=== PATIENT | female | born 1980 | race Hispanic/Latino ===

== ENCOUNTER 2023-02-04 02:26 | Emergency (ER) | payer BC, OTHER ==
--- OUTSIDE RECORDS SUMMARY | 2023-02-04 02:30 | XMS REPORT | Continuity of Care Document ---
:1980 Author Organization [facility] t Address [address] [place] [address] [address] [place] [address] Care Team Providers Name Role Phone Yanci Huggins Primary Care Physician [phone] L_Ronny Attending Clinician Unavailable ALAYNA_Imani Attending Clinician Unavailable ANURADHA PACE Attending Clinician Unavailable ALEAH CABRALES Attending Clinician Unavailable KEYUR MCBRIDE Attending Clinician Unavailable Doctor Unassigned, [place] Attending Clinician Unavailable Deo Moon MD Attending Clinician Dinh Moody MD Attending Clinician DEO MOON Attending Clinician Unavailable Sana Bush RN Attending Clinician Unavailable Lulu Leon Attending Clinician [phone] Elva Garcia MD Attending Clinician Olga Parker MD Attending Clinician OLGA PARKER Attending Clinician Unavailable Lab, Adc Fam Pob I Attending Clinician Unavailable Trisha Al Attending Clinician TRISHA BHAKTA Attending Clinician Unavailable Magnus Mckeon Attending Clinician Unknown, Attending Attending Clinician Unavailable MAGNUS GRACE Attending Clinician Unavailable FAHAD ASENCIO Attending Clinician Unavailable Fahad Asencio MD Attending Clinician ALANNA CANALES Attending Clinician Unavailable Alanna Canales PA-C Attending Clinician Luis RN, Prasanna Attending Clinician Unavailable 2, Adc Lab Attending Clinician Unavailable Imani_Ronny Admitting Clinician Unavailable OLE Admitting Clinician Unavailable Olga Parker MD Admitting Clinician OLGA PARKER Admitting Clinician Unavailable ALANNA CANALES Admitting Clinician Unavailable Payers Payer Name Policy Type Policy Number Effective Date Expiration Date Juan F slaughter [facility] [id number] 2022 CHOICE (HMO) 00:00:00 [place] [id number] 2016 2020 [place] (PPO) 00:00:00 00:00:00 Problems Condition Condition Condition Status Onset Resolution Last Treating Co mments Source Name Details Category Date Date Treatment Clinician Date PTSD PTSD Disease Active [facility] (post-trau (post-trau 4-03 He alth matic matic 00:00: stress stress 00 disorder) disorder) Essential Essential Problem Active Swe abbie hypertensi Hypertensi 3-03 Co mmuni [facility] Frost[facility] Frostbite Disease Active Uni vers of both of both 2-20 ity of feet, feet, 00:00: [place] initial initial 00 Medical encounter encounter Bran ch Incomplete Incomplete Disease Active 2019- U nivers spontaneou spontaneou 5-14 it [place] of s s [place] 00 [place] Breathing Breathing Disease Active 2019-0 Uni vers problem problem 5-08 ity of 00:00: [place] 00 Medical Branch Hypothyroi Hypothyroi Disease Active 2019-0 U nivers dism, dism, 4-24 ity of unspecifie unspecifie 00:[place] d type d type 00 Medical Branch Medication Medication Disease Active 2020-0 U nivers exposure exposure 4-24 ity of during during 00:00: [place] first first 00 Medical trimester trimester Bran ch of of History of History of Disease Active 2019-0 U nivers anxiety anxiety 4-24 ity of 00:00: [place] 00 Medical Branch History of History of Disease Active U nivers depression depression 4-24 it y of 00:00: [place] 00 Medical [place] Disease Active Uni vers examinatio examinatio 4-24 it y of n or test, n or test, [place]: [place] positive positive 00 Medica l result result Branch Obesity Obesity Disease Active Univers (BMI (BMI 4-23 ity of 30-39.9) 30-39.9) 00:00: [place] 00 Medical Branch Essential Essential Problem Active [facility] abbie tremor Tremor 05-15 [facility] 00:[facility]: [facility] Smoker Smoker Problem Active [place] 3- Communi 00:00: ty [facility] Elevated Elevated Problem Active [place] liver Liver 07-14 Communi enzymes Enzymes 00:00: ty level Level 00 [facility]ospita [facility] Clinics Hypothyroi Hypothyroi Problem Active S weeny dism dism 3 Communi 00:00: [place] 00 [facility] Anxiety Anxiety Problem Active [place] 3-27 Communi 00:00: ty 00 [facility] Encounter Encounter Disease Active 2015-04 Uni vers for for 1-30 ity of initial initial 00:00: [place] prescripti prescripti 00 Me dical on of on of Branch contracept contracept gutierrez pills gutierrez pills Morbid Morbid Disease Active 2015-04 Univers obesity, obesity, 1-30 ity of unspecifie unspecifie 00:00: [place] d obesity d obesity 00 Medi kit type type Branch Depression Depression Disease Active [facility] Allergies, Adverse Reactions, Alerts Allergy Allergy Status Severity Reaction(s) Onset Inactive Treating Comm ents Source Name Type Date Date Clinician NO KNOWN Drug Active Univers ALLERGIE Class ity of S [facility] Social History Social Habit Start Date Stop Date Quantity Comments Source ASSERTION 2019-07-17 University of 00:00:00 [facility] Alcohol Comment occasional Universit y of [facility] History of tobacco Cigarette Smoker University of use [facility] History SDOH University o f Alcohol Binge [facility] Sexual orientation [facility] History of Social 2022-05-14 2022-05-14 [facility] function 00:00:00 00:00:00 Exposure to 2020-06-01 2020-07-01 Not sure [facility] SARS-CoV-2 (event) 00:00:00 12:38:00 [facility] Alcohol intake 2019-09-03 2019-09-03 0 /d University of 00:00:00 00:00:00 [facility] Tobacco use and 2019-08-09 2019-08-09 Smokeless tobacco Un iversity of exposure 00:00:00 00:00:00 non-user [place] [facility] [place] History SDOH 2019-08-09 2019-08-09 4 University o f Alcohol Frequency 00:00:00 00:00:00 [facility] edical Branch History SDOH 2019-08-09 2019-08-09 2 University o f Alcohol Std Drinks 00:00:00 00:00:00 [facility] Tobacco Comment 2019-08-09 2019-08-09 trying to quit [facility] rsity of 00:00:00 00:00:00 [facility] Sex Ass[birth year] At [birth year] Angel Presley alth 00:00:00 00:00:00 Smoking Status Start Date Stop Date Source Occasional tobacco smoker 2019-08-09 00:00:00 Un iversity of [facility] Current every day smoker 2016-03-17 00:00:00 Uni versity [facility] Medications Ordered Filled Start Stop Current Ordering Indication Dosage Frequency Signature Comments Components Source Medication Medication Date Date Medication? Clinician (SIG) Name Name propranolol 2020- No 4222 20mg Take 20 mg Univers 20 mg 12-08 by mouth ity of tablet 19:09: 00:00 daily. [place] 57 :00 Indication Medical s: Branch essential tremor 2020- Take by [facility] rs vit,calc76/ 12-08 mouth. ity o f iron/folic 19:09: 00:00 [place] (PNV 29-1 57 :00 Medical ORAL) Branch sertraline Yes PTSD 25mg QD Take 1 Harri s (ZOLOFT) 25 4-06 (post-traum tablet by Health mg tablet 00:00: atic stress mouth 00 disorder) daily. gabapentin Yes PTSD 300mg Take 1 [place] is (NEURONTIN) 4-05 (post-traum capsule by Health 300 mg 00:00: atic stress mouth 3 capsule 00 disorder) times daily. nicotine Yes PTSD 2mg Place 1 Angel polacrilex 4-05 (post-traum Each He alth (NICORETTE) 00:00: atic stress inside 2 mg Gum 00 disorder) cheek every 2 hours as needed (Nicotine replacemen t). traZODone Yes PTSD 50mg Take 1 [facility] (DESYREL) 4-05 (post-traum tablet by Health 50 mg 00:00: atic stress mouth tablet 00 disorder) nightly at bedtime as needed for Sleep. docusate Yes [id number] 100mg Take 1 Un esteban 100 mg 2-26 capsule by ity of capsule 00:00: mouth [place] 00 daily. Medical Branch NIFEdipine Yes [id number] 60mg Take 1 U nivers ER 60 mg 2-26 tablet by ity of tablet 00:00: mouth [place] 00 daily. Medical Branch Polyethylen Yes [id number] 17g Take 1 Univers e Glycol 2-26 Packet by ity of 3350 17 00:00: mouth [place] gram powder 00 daily. Medica l Branch docusate Yes [id number] 100mg Take 1 Un esteban 100 mg 2-26 capsule by ity of capsule 00:00: mouth [place] 00 daily. Medical Branch NIFEdipine Yes [id number] 60mg Take 1 U nivers ER 60 mg 2-26 tablet by ity of tablet 00:00: mouth [place] 00 daily. Medical Branch Polyethylen Yes [id number] 17g Take 1 Univers e Glycol 2-26 Packet by ity of 3350 17 00:00: mouth [place] gram powder 00 daily. Medica l Branch docusate Yes [id number] 100mg Take 1 Un esteban 100 mg 2-26 capsule by ity of capsule 00:00: mouth [place] 00 daily. Medical Branch NIFEdipine Yes [id number] 60mg Take 1 U nivers ER 60 mg 2-26 tablet by ity of tablet 00:00: mouth [place] 00 daily. Medical Branch Polyethylen Yes [id number] 17g Take 1 Univers e Glycol 2-26 Packet by ity of 3350 17 00:00: mouth [place] gram powder 00 daily. Medica l Branch docusate Yes [id number] 100mg Take 1 Un esteban 100 mg 2-26 capsule by ity of capsule 00:00: mouth [place] 00 daily. Medical Branch NIFEdipine Yes [id number] 60mg Take 1 U nivers ER 60 mg 2-26 tablet by ity of tablet 00:00: mouth [place] 00 daily. Medical Branch Polyethylen Yes [id number] 17g Take 1 Univers e Glycol 2-26 Packet by ity of 3350 17 00:00: mouth [place] gram powder 00 daily. Medica l Branch docusate Yes [id number] 100mg Take 1 Un esteban 100 mg 2-26 capsule by ity of capsule 00:00: mouth [place] 00 daily. Medical Branch NIFEdipine Yes [id number] 60mg Take 1 U nivers ER 60 mg 2-26 tablet by ity of tablet 00:00: mouth [place] 00 daily. Medical Branch Polyethylen Yes [id number] 17g Take 1 Univers e Glycol 2-26 Packet by ity of 3350 17 00:00: mouth [place] gram powder 00 daily. Medica l Branch docusate Yes [id number] 100mg Take 1 Un esteban 100 mg 2-26 capsule by ity of capsule 00:00: mouth [place] 00 daily. Medical Branch NIFEdipine Yes [id number] 60mg Take 1 U nivers ER 60 mg 2-26 tablet by ity of tablet 00:00: mouth [place] 00 daily. Medical Branch Polyethylen Yes [id number] 17g Take 1 Univers e Glycol 2-26 Packet by ity of 3350 17 00:00: mouth [place] gram powder 00 daily. Medica l Branch ciprofloxac 2020- No 500mg 500 mg, U nivers in HCl 2- 03-04 Oral, ity of (CIPRO) 12:45: 11:59 Q12HA2, 14 [place] as tablet 500 00 :00 doses, Medical mg First dose Branch on Beatrice 06/12/20 at 0645, Last dose on Tue06/18/20 at 1800, RHINA
Re ason for Anti-Infec tive: Empiric Therapy for Suspected Infection< br>Empiric Therapy Site: Abdominal< br>Duratio n of therapy: 7 days fluconazole No 400mg 400 mg, U nivers (DIFLUCAN) 2-25 02-25 Oral, ity of tablet 400 00:45: 00:07 ONCE, 1 [place] as mg 00 :00 dose, Wed Medical 06/11/20 at Branch 1845, RHINA
Re ason for Anti-Infec tive: Empiric Non-Surgic al Prophylaxi s
Durat ion of therapy: 72 hours HYDROcodone 2020-0 Yes [id number] 1{tbl} Take 1 Un esteban -acetaminop 2-25 tablet by ity of hen (NORCO) 00:00: mouth [place] 5-325 mg 00 every 6 Medical tablet (six) Branch hours as needed for Pain (scale 4-6). Indication s: acute pain, burn acetaminoph Yes [id number] 500mg Take 1 Univers en 500 mg 2-25 tablet by ity o f tablet 00:00: mouth [place] 00 every 6 Medical (six) Branch hours as needed for Pain. Yes [id number] 1{tbl} Take 1 U nivers [id number]- 2-25 tablet by ity of folic acid 00:00: mouth [place] ( 00 daily. Medical 19) 29 mg Branch iron- 1 mg per tablet nystatin / Yes [id number] Apply to Univers bacitracin- 2-25 affected ity of polymyxin b 00:00: area(s) as [place] oint 1:1 00 needed for Medic al POLY-MYCO Burn Care. Bran ch (COMPOUNDED ) HYDROcodone 0 Yes [id number] 1{tbl} Take 1 Un esteban -acetaminop 2-25 tablet by ity of hen (NORCO) 00:00: mouth [place] 5-325 mg 00 every 6 Medical tablet (six) Branch hours as needed for Pain (scale 4-6). Indication s: acute pain, burn acetaminoph Yes [id number] 500mg Take 1 Univers en 500 mg 2-25 tablet by ity o f tablet 00:00: mouth [place] 00 every 6 Medical (six) Branch hours as needed for Pain. Yes [id number] 1{tbl} Take 1 U nivers [id number]- 2-25 tablet by ity of folic acid 00:00: mouth [place] ( 00 daily. Medical 19) 29 mg Branch iron- 1 mg per tablet nystatin / Yes [id number] Apply to Univers bacitracin- 2-25 affected ity of polymyxin b 00:00: area(s) as [place] oint 1:1 00 needed for Medic al POLY-MYCO Burn Care. Bran ch (COMPOUNDED ) HYDROcodone Yes [id number] 1{tbl} Take 1 Un esteban -acetaminop 2-25 tablet by ity of hen (NORCO) 00:00: mouth [place] 5-325 mg 00 every 6 Medical tablet (six) Branch hours as needed for Pain (scale 4-6). Indication s: acute pain, burn acetaminoph Yes [id number] 500mg Take 1 Univers en 500 mg 2-25 tablet by ity o f tablet 00:00: mouth [place] 00 every 6 Medical (six) Branch hours as needed for Pain. Yes [id number] 1{tbl} Take 1 U nivers [id number]- 2-25 tablet by ity of folic acid 00:00: mouth [place] ( 00 daily. Medical 19) 29 mg Branch iron- 1 mg per tablet nystatin / Yes [id number] Apply to Univers bacitracin- 2-25 affected ity of polymyxin b 00:00: area(s) as [place] oint 1:1 00 needed for Medic al POLY-MYCO Burn Care. Bran ch (COMPOUNDED ) HYDROcodone Yes [id number] 1{tbl} Take 1 Un esteban -acetaminop 2-25 tablet by ity of hen (NORCO) 00:00: mouth [place] 5-325 mg 00 every 6 Medical tablet (six) Branch hours as needed for Pain (scale 4-6). Indication s: acute pain, burn acetaminoph Yes [id number] 500mg Take 1 Univers en 500 mg 2-25 tablet by ity o f tablet 00:00: mouth [place] 00 every 6 Medical (six) Branch hours as needed for Pain. Yes [id number] 1{tbl} Take 1 U nivers [id number]- 2-25 tablet by ity of folic acid 00:00: mouth [place] ( 00 daily. Medical 19) 29 mg Branch iron- 1 mg per tablet nystatin / Yes [id number] Apply to Univers bacitracin- 2-25 affected ity of polymyxin b 00:00: area(s) as [place] oint 1:1 00 needed for Medic al POLY-MYCO Burn Care. Bran ch (COMPOUNDED ) HYDROcodone Yes [id number] 1{tbl} Take 1 Un esteban -acetaminop 2-25 tablet by ity of hen (NORCO) 00:00: mouth [place] 5-325 mg 00 every 6 Medical tablet (six) Branch hours as needed for Pain (scale 4-6). Indication s: acute pain, burn acetaminoph Yes [id number] 500mg Take 1 Univers en 500 mg 2-25 tablet by ity o f tablet 00:00: mouth [place] 00 every 6 Medical (six) Branch hours as needed for Pain. Yes [id number] 1{tbl} Take 1 U nivers [id number]- 2-25 tablet by ity of folic acid 00:00: mouth [place] ( 00 daily. Medical 19) 29 mg Branch iron- 1 mg per tablet nystatin / Yes [id number] Apply to Univers bacitracin- 2-25 affected ity of polymyxin b 00:00: area(s) as [place] oint 1:1 00 needed for Medic al POLY-MYCO Burn Care. Bran ch (COMPOUNDED ) HYDROcodone Yes [id number] 1{tbl} Take 1 Un esteban -acetaminop 2-25 tablet by ity of hen (NORCO) 00:00: mouth [place] 5-325 mg 00 every 6 Medical tablet (six) Branch hours as needed for Pain (scale 4-6). Indication s: acute pain, burn acetaminoph Yes [id number] 500mg Take 1 Univers en 500 mg 2-25 tablet by ity o f tablet 00:00: mouth [place] 00 every 6 Medical (six) Branch hours as needed for Pain. Yes [id number] 1{tbl} Take 1 U nivers [id number]- 2-25 tablet by ity of folic acid 00:00: mouth [place] ( 00 daily. Medical 19) 29 mg Branch iron- 1 mg per tablet nystatin / 0 Yes [id number] Apply to Univers bacitracin- 2-25 affected ity of polymyxin b 00:00: area(s) as [place] oint 1:1 00 needed for Medic al POLY-MYCO Burn Care. Bran ch (COMPOUNDED ) ciprofloxac 2020- No [id number] 500mg Take 1 Univers in HCl 500 25 -05 tablet by ity of mg tablet 00:00: 05:59 mouth [place] 00 :00 every 12 Medical (twelve) Branch hours for 7 days. ciprofloxac 2020- No [id number] 500mg Take 1 Univers in HCl 500 225 -05 tablet by ity of mg tablet 00:00: 05:59 mouth [place] 00 :00 every 12 Medical (twelve) Branch hours for 7 days. ciprofloxac 2020- No [id number] 500mg Take 1 Univers in HCl 500 06-12-05 tablet by ity of mg tablet 00:00: 05:59 mouth [place] 00 :00 every 12 Medical (twelve) Branch hours for 7 days. doxycycline 2020- No 100mg 100 mg, IV Univers (VIBRAMYCIN 06-11 Piggyback, i ty of ) 100 mg in 20:00: 12:37 Q12H ABX, [place] NaCl 0.9% 00 :42 First dose Medi kit (NS) 100 mL on Tue Branch MINI-BAG 06/11/20 at 1400, Until Discontinu ed, 100 mL
R shannon for Anti-Infec tive: Empiric Therapy for Suspected Infection< br>Empiric Therapy Site: Skin / Soft tissue
Duration of therapy: 7 days ciprofloxac No 400mg 400 mg, IV Univers in in 5 % 06-11 Piggyback, ity of dextrose 20:00: 12:37 Administer [place] (CIPRO) 00 :42 over 60 Medical piggyback Minutes, Branch 400 mg Q12H ABX, First dose on Tue06/11/20 at 1400, Until Discontinu ed, RHINA
Re ason for Anti-Infec tive: Empiric Therapy for Suspected Infection< br>Empi evangelist Therapy Site: Skin / Soft tissue
Duration of therapy: 7 days enoxaparin Yes 40mg 40 mg, Unive rs (LOVENOX) 224 Subcutaneo ity of injection 15:00: us, DAILY, [place] 40 mg 00 First dose Medical (after Branch last modificati on) on Tue06/11/20 at 0900, Until Discontinu ed, Routine acetaminoph Yes 500mg 500 mg, Un esteban en 2-24 Oral, Q6H, ity of (TYLENOL) 00:00: First dose [place] tablet 500 00 (after Medical mg last Branch modificati on) on Tue06/10/20 at 1800, Until Discontinu ed, Routine HYDROcodone 0 Yes 1{tbl} 1 tablet, Univers -acetaminop 06-10 Oral, ity of hen (NORCO 18:30: Q4HPRN, [place] 5) 5-325 mg 00 Starting Medi kit tablet 1 Tue [place] tablet 06/10/20 at 1230, Until Discontinu ed, Routine, Pain (scale 7-10) ibuprofen Yes 800mg 800 mg, Univ ers (IBU) 2 Oral, ity of tablet 800 18:18: Q6HPRN, [place] mg 56 Starting Medical [facility] 06/10/20 at 1218, Until Discontinu ed, Routine, Pain (scale 1-3) NIFEdipine Yes 60mg 60 mg, Unive rs ER tablet 06-10 Oral, ity of 60 mg 15:00: DAILY, [place] 00 First dose Medical (after Branch last modificati on) on Tue06/10/20 at 0900, Until Discontinu ed, Routine nystatin / Yes Topical Univ ers bacitracin- 06-10 (Apply To ity of polymyxin b 13:55: Affected [place] oint 1:1 48 Areas), Medical POLY-MYCO PRN, Branch (COMPOUNDED Starting ) Tue06/10/20 at 0755, Until Discontinu ed, Routine, Burn Care sulfamethox 2020- No 1{tbl} 1 tablet, Univers azole-trime 06-10 Oral, BID, i ty of thoprim 02:00: 12:44 First dose [place] as (BACTRIM 00 :02 on Mon Medical DS) 800-160 06/09/20 at Br anch mg per 1999, tablet 1 Until tablet Discontinu ed, RHINA
Re ason for Anti-Infec tive: Empiric Therapy for Suspected Infection< br>Empiric Therapy Site: Skin / Soft tissue
Duration of therapy: 7 days NIFEdipine No 30mg 30 mg, Univ ers ER tablet 06-09 Oral, ity of 30 mg 19:45: 19:43 ONCE, 1 [place] 00 :00 dose, [facility] 06/09/20 at Branch 1345, Routine diazePAM Yes 5mg 5 mg, Univers (VALIUM) 06-08 Oral, TID, ity o f tablet 5 mg 20:00: First dose [place] 00 on [facility] 06/08/20 at Branch 1400, Until Discontinu ed, Routine KCL No 30meq 30 mEq, Univers (KLOR-CON 06-08 Oral, ity of M10) tablet 19:15: 20:41 ONCE, 1 [place] 30 mEq 00 :00 dose, [facility] 06/08/20 at Branch 1315, Routine Polyethylen Yes 17g 17 g, Unive rs e Glycol 06-08 Oral, ity of 3350 18:30: DAILY, [place] (MIRALAX) 00 First dose Medi kit powder 17 g on [facility] 06/08/20 at 1230, Until Discontinu ed, Routine docusate Yes 100mg 100 mg, Unive rs (COLACE) 06-08 Oral, ity of capsule 100 18:30: DAILY, [place] mg 00 First dose Medical on [facility] 06/08/20 at 1230, Until Discontinu ed, Routine NIFEdipine No 30mg 30 mg, Univ ers ER tablet 06-08 Oral, ity of 30 mg 18:30: 18:36 DAILY, [place] 00 :11 First dose Medical on [facility] 06/08/20 at 1230, Until Discontinu ed, Routine D5W 0.45% 2020- No IV Univers NaCl 06-08 Infusion, ity of (1/2NS) 1 L 18:30: 20:48 at 20 [place] + KCL 20 00 :07 mL/hr, Medical mEq CONTINUOUS Branch , Starting Panacea 06/08/20 at 1230, Until Panacea 06/08/20 at 1448, Routine famotidine Yes 20mg 20 mg, Unive rs (PEPCID AC) 06-08 Oral, ity of tablet 20 15:00: DAILY, [place] mg 00 First dose Medical on [facility] 06/08/20 at 0900, Until Discontinu ed, Routine
Indicatio n for use: None of the above multivitami Yes 1{tbl} 1 tablet, Univers n tablet 1 06-08 Oral, ity of tablet 15:00: DAILY, [place] 00 First dose Medical on [facility] 06/08/20 at 0900, Until Discontinu ed, Routine KCL 2020- No 20meq 20 mEq, Univers (KLOR-CON 06-08 Oral, ity of M20) tablet 14:00: 14:25 ONCE, 1 [place] 20 mEq 00 :00 dose, [facility] 06/08/20 at Branch 0800, Routine vancomycin No 1000mg 1,000 mg, Univers (VANCOCIN) 06-08 IV ity of 1,000 mg in 09:00: 18:36 Piggyback, [place] NaCl 0.9% 00 :10 Q12H ABX, Medic al (NS) 250 mL First dose Br anch VIAL-MATE (after IV last piggyback modificati on) on Panacea 06/08/20 at 0300, Until Discontinu ed, 250 mL
Reas on for Anti-Infec tive: Empiric Therapy for Suspected Infection< br>Empiric Therapy Site: Skin / Soft tissue
Duration of therapy: 7 days meropenem 2020- No 500mg 500 mg, IV Univers (MERREM) 06-08 Piggyback, ity of 500 mg in 03:30: 18:36 Administer [place] NaCl 0.9% 00 :10 over 60 Medical (NS) 100 mL Minutes, Bran ch MINI-BAG Q6H ABX, First dose (after last modificati on) on [facility] 06/07/20 at 2130, Until Discontinu ed, RHINA
Re stricted use approved by: [facility] ICU
[place] son for Anti-Infec tive: Empiric Therapy for Suspected Infection< br>Empiric Therapy Site: Skin / Soft tissue
Duration of therapy: 7 days ascorbic Yes 500mg 500 mg, Unive rs acid 06-08 Oral, BID, ity of (vitamin C) 02:00: First dose [place] (VITAMIN C) 00 on [facility] Medica l tablet 500 06/07/20 at [facility] mg 1999, Until Discontinu ed, Routine chlorhexidi Yes 15mL 15 mL, Univ ers ne 06-08 Oral ity of (PERIDEX) 02:00: ([place] 0.12 % 00 Spit Out), Medical mouthwash BID, First Bran ch 15 mL dose on [facility] 06/07/20 at 2000, Until Discontinu ed, Routine silver 2020- No Topical, Univer s nitrate 0.5 06-08 BID, First i ty of % soak 02:00: 13:44 dose on [place] topical 00 :00 [facility] Medical 1000 mL 06/07/20 at [place] (COMPOUNDED 1999, ) solution Until Discontinu ed, Routine enoxaparin 2020- No 40mg 40 mg, Univ ers (LOVENOX) 06-07 Subcutaneo ity of injection 23:00: 13:44 us, DAILY, [place] 40 mg 00 :01 First dose Medical on [facility] Branch 06/07/20 at 1700, Until Discontinu ed, Routine meropenem No 500mg 500 mg, IV Univers (MERREM) 06-07 Piggyback, ity of 500 mg in 21:30: 22:20 Administer [place] NaCl 0.9% 00 :00 over 60 Medical (NS) 100 mL Minutes, Bran ch MINI-BAG ONCE, 1 dose, [facility] 06/07/20 at 1530, RHINA
Re stricted use approved by: [facility] ICU
[place] son for Anti-Infec tive: Empiric Therapy for Suspected Infection< br>Empiric Therapy Site: Skin / Soft tissue
Duration of therapy: 7 days vancomycin No 1000mg 1,000 mg, Univers (VANCOCIN) 06-07 IV ity of 1,000 mg in 21:30: 23:19 Piggyback, [place] NaCl 0.9% 00 :00 ONCE, 1 Medical (NS) 250 mL dose, Sat Bra [facility] VIAL-MATE 06/07/20 at IV 1530, 250 piggyback mL
Reas on for Anti-Infec tive: Empiric Therapy for Suspected Infection< br>Empiric Therapy Site: Skin / Soft tissue
Duration of therapy: 7 days FENTanyl PF 2020- Yes 50ug 50 mcg, Uni vers (SUBLIMAZE 2-20 Slow IV ity of (PF)) 20:41: Push, PRN [place] injection 18 - SEE Medical 50 mcg INSTRUCTIO Branch NS, Starting 06/07/20 at 1441, Until Discontinu ed, Routine, tub room only morpHINE Yes 4mg 4 mg, Slow Uni vers injection 4 2-20 IV Push, ity of mg 20:41: Q4HPRN, [place] 00 Starting Medical [facility] Branch 06/07/20 at 1441, Until Discontinu ed, Routine, Breakthrou gh pain traMADoL Yes 50mg 50 mg, Univers (ULTRAM) 2-20 Oral, ity of tablet 50 20:40: Q6HPRN, [place] mg 43 Starting Medical [facility] Branch 06/07/20 at 1440, Until Discontinu ed, Routine, Pain (scale 4-6) acetaminoph 2020- No 650mg 650 mg, U nivers en -06-10 Oral, ity of (TYLENOL) 20:40: 18:21 Q6HPRN, [place] tablet 650 08 :42 Starting Medic al mg Sat Branch 06/07/20 at 1440, Until Tu06/10/20 at 1221, Routine, Alternate with ibuprofen for pain scale 1-3 HYDROcodone 2020- No 1{tbl} 1 tablet, Univers -acetaminop -06-10 Oral, ity of hen (NORCO 20:39: 18:21 Q6HPRN, [place] as 5) 5-325 mg 59 :42 Starting Medi kit tablet 1 [facility] tablet 06/07/20 at 1439, Until 06/10/20 at 1221, Routine, Pain (scale 7-10) ondansetron Yes 4mg 4 mg, Slow Univers (ZOFRAN 2-20 IV Push, ity of (PF)) 20:39: Q6HPRN, [place] injection 4 23 Starting Medi kit mg Sat Branch 06/07/20 at 1439, Until Discontinu ed, Routine, Nausea and Vomiting (N/V) morpHINE 0 2020- No 4mg 4 mg, Slow Un esteban injection 4 2-20 02-20 IV Push, ity of mg 20:15: 19:15 ONCE, 1 [place] 00 :00 dose, [facility] Medical 06/07/20 at Branch 1415, Routine zinc 2020-0 Yes 220mg 220 mg, Univers sulfate 2-20 Oral, TID, ity of (ORAZINC) 20:00: [place] capsule 220 00 on [facility] Medica l mg 06/07/20 at Branch 1400, Until Discontinu ed, Routine foLIC acid Yes 1mg 1 mg, Univer s (FOLATE) 2-20 Oral, ity of tablet 1 mg 19:45: DAILY, [facility] s 00 First dose Medical on [facility] Branch 06/07/20 at 1345, Until Discontinu ed, Routine thiamine Yes 100mg 100 mg, Unive rs (VITAMIN 2-20 Oral, ity of B1) tablet 19:45: DAILY, [place] 100 mg 00 First dose Medical on [facility] Branch 06/07/20 at 1345, Until Discontinu ed, Routine D5W 0.45% 0 2020- No IV Univers NaCl 06-07 Infusion, ity of (1/2NS) 1 L 19:30: 18:15 at 50 [facility] s + KCL 20 00 :20 mL/hr, Medical mEq CONTINUOUS Branch , Starting 06/07/20 at 1330, Until 06/08/20 at 1215, Routine propranolol 0 2020- No 4222 20mg Take 20 mg Univers 20 mg 2-20 -20 by mouth ity of tablet 18:59: 00:00 daily. [place] 28 :00 Indication Medical s: Branch essential tremor 2020-0 2020- No Take by Unive rs vit,calc76/ 2-20 -20 mouth. ity o f iron/folic 18:59: 00:00 [place] (PNV 29-1 22 :00 Medical ORAL) Branch clonidine clonidine 0 No clonidine [place] HCl 0.1 mg HCl 0.1 mg 2-01 HCl 0.1 mg Communi tabletTake tabletTake 13:40: tabletTake ty 1 tablet by 1 tablet by 00 1 tablet Hospita oral route oral route by oral l as directed as directed route as Clinics for 1 day. for 1 day. directed for 1 day. 2019-0 Yes Take by Univer s vit,calc76/ 5-18 mouth. ity of iron/folic 14:31: [place] ([facility] 29-1 27 Medical ORAL) [place] 0 Yes Take by Univer s vit,calc76/ 5-18 mouth. ity of iron/folic 14:31: [place] ([facility] 29-1 27 Medical ORAL) [place] 0 Yes Take by Univer s vit,calc76/ 5-18 mouth. ity of iron/folic 14:31: [place] ([facility] 29-1 27 Medical ORAL) [place] Yes Take by Univer s vit,calc76/ 5-18 mouth. ity of iron/folic 14:31: [place] ([facility] 29-1 27 Medical ORAL) [place] 0 Yes Take by Univer s vit,calc76/ 5-18 mouth. ity of iron/folic 14:31: [place] ([facility] 29-1 27 Medical ORAL) [place] 0 Yes Take by Univer s vit,calc76/ 5-18 mouth. ity of iron/folic 14:31: [place] ([facility] 29-1 27 Medical ORAL) [place] 0 Yes Take by Univer s vit,calc76/ 5-18 mouth. ity of iron/folic 14:31: [place] ([facility] 29-1 27 Medical ORAL) [place] propranolol 2020-0 Yes 4222 20mg Take 20 mg Univers 20 mg 5-07 by mouth ity of tablet 14:30: daily. [place] [address] Indication Medical s: Branch essential tremor propranolol 2020-0 Yes 4222 20mg Take 20 mg Univers 20 mg 5-07 by mouth ity of tablet 14:30: daily. [place] [address] Indication Medical s: Branch essential tremor propranolol 2020-0 Yes 4222 20mg Take 20 mg Univers 20 mg 5-07 by mouth ity of tablet 14:30: daily. [place] [address] Indication Medical s: Branch essential tremor propranolol 2020-0 Yes 4222 20mg Take 20 mg Univers 20 mg 5-07 by mouth ity of tablet 14:30: daily. [place] [address] Indication Medical s: Branch essential tremor propranolol 2020-0 Yes 4222 20mg Take 20 mg Univers 20 mg 5-07 by mouth ity of tablet 14:30: daily. [place] 49 Indication Medical s: Branch essential tremor propranolol 2020-0 Yes 4222 20mg Take 20 mg Univers 20 mg 5-07 by mouth ity of tablet 14:30: daily. [place] 49 Indication Medical s: Branch essential tremor propranolol 2020-0 Yes 4222 20mg Take 20 mg Univers 20 mg 5-07 by mouth ity of tablet 14:30: daily. [place] 49 Indication Medical s: Branch essential tremor propranolol 2020-0 Yes 4222 20mg Take 20 mg Univers 20 mg 5-07 by mouth ity of tablet 14:30: daily. [place] [address] Indication Medical s: Branch essential tremor propranolol 2020-0 Yes 4222 20mg Take 20 mg Univers 20 mg 5-07 by mouth ity of tablet 14:30: daily. [place] [address] Indication Medical s: Branch essential tremor propranolol 2020-0 Yes 4222 20mg Take 20 mg Univers 20 mg 5-07 by mouth ity of tablet 14:30: daily. [place] 49 Indication Medical s: Branch essential tremor propranolol 2020-0 Yes 4222 20mg Take 20 mg Univers 20 mg 5-07 by mouth ity of tablet 14:30: daily. [place] [address] Indication Medical s: Branch essential tremor propranolol 2020-0 Yes 4222 20mg Take 20 mg Univers 20 mg 5-07 by mouth ity of tablet 14:30: daily. [place] 49 Indication Medical s: Branch essential tremor propranolol 2020-0 Yes 4222 20mg Take 20 mg Univers 20 mg 5-07 by mouth ity of tablet 14:30: daily. [place] 49 Indication Medical s: Branch essential tremor propranolol 2020-0 Yes 4222 20mg Take 20 mg Univers 20 mg 5-07 by mouth ity of tablet 14:30: daily. [place] 49 Indication Medical s: Branch essential tremor propranolol 2020-0 Yes 4222 20mg Take 20 mg Univers 20 mg 5-07 by mouth ity of tablet 14:30: daily. [place] [address] Indication Medical s: Branch essential tremor propranolol 2020-0 Yes 4222 20mg Take 20 mg Univers 20 mg 4-23 by mouth ity of tablet 18:42: daily. [place] [address] Indication Medical s: Branch essential tremor 2020-0 Yes Take by Univer s vit,calc76/ 4-23 mouth. ity of iron/folic 18:42: [place] ([facility] Medical ORAL) [place] propranolol 2020-0 Yes 4222 20mg Take 20 mg Univers 20 mg 4-23 by mouth ity of tablet 18:42: daily. [place] [address] Indication Medical s: Branch essential tremor 2020-0 Yes Take by Univer s vit,calc76/ 4-23 mouth. ity of iron/folic 18:42: [place] ([address] Medical ORAL) [place] 2020-0 Yes Take by Univer s vit,calc76/ 4-23 mouth. ity of iron/folic 18:42: [place] ([address] Medical ORAL) [place] 2020-0 Yes Take by Univer s vit,calc76/ 4-23 mouth. ity of iron/folic 18:42: [place] ([address] Medical ORAL) [place] 2020-0 Yes Take by Univer s vit,calc76/ 4-23 mouth. ity of iron/folic 18:42: [place] ([place] [address] Medical ORAL) [place] 2020-0 Yes Take by Univer s vit,calc76/ 4-23 mouth. ity of iron/folic 18:42: [place] ([facility] Medical ORAL) [place] 2020-0 Yes Take by Univer s vit,calc76/ 4-23 mouth. ity of iron/folic 18:42: [place] ([facility] Medical ORAL) [place] 2020-0 Yes Take by Univer s vit,calc76/ 4-23 mouth. ity of iron/folic 18:42: [place] ([address] Medical ORAL) [place] 2020-0 Yes Take by Univer s vit,calc76/ 4-23 mouth. ity of iron/folic 18:42: [place] ([place] [address] Medical ORAL) [place] 2020-0 Yes Take by Univer s vit,calc76/ 4-23 mouth. ity of iron/folic 18:42: [place] ([place] [address] Medical ORAL) [place] propranolol 2020-0 Yes 4222 20mg Take 20 mg Univers 20 mg 4-23 by mouth ity of tablet 18:42: daily. [place] [address] Indication Medical s: Branch essential tremor 2020-0 Yes Take by Univer s vit,calc76/ 4-23 mouth. ity of iron/folic 18:42: [place] (PNV 29-1 07 Medical ORAL) Branch levothyroxi 2020-0 Yes [id number] 50ug Take 1 Univers ne 4-23 tablet by ity of (SYNTHROID) 00:00: mouth [place] 50 mcg 00 every Medical tablet morning. Branch levothyroxi 2020-0 Yes [id number] 50ug Take 1 Univers ne 4-23 tablet by ity of (SYNTHROID) 00:00: mouth [place] 50 mcg 00 every Medical tablet morning. Branch levothyroxi 2020-0 Yes [id number] 50ug Take 1 Univers ne 4-23 tablet by ity of (SYNTHROID) 00:00: mouth [place] 50 mcg 00 every Medical tablet morning. Branch levothyroxi 2020-0 Yes [id number] 50ug Take 1 Univers ne 4-23 tablet by ity of (SYNTHROID) 00:00: mouth [place] 50 mcg 00 every Medical tablet morning. Branch levothyroxi 2020-0 Yes [id number] 50ug Take 1 Univers ne 4-23 tablet by ity of (SYNTHROID) 00:00: mouth [place] 50 mcg 00 every Medical tablet morning. Branch levothyroxi 2020-0 Yes [id number] 50ug Take 1 Univers ne 4-23 tablet by ity of (SYNTHROID) 00:00: mouth [place] 50 mcg 00 every Medical tablet morning. Branch levothyroxi 2020-0 Yes [id number] 50ug Take 1 Univers ne 4-23 tablet by ity of (SYNTHROID) 00:00: mouth [place] 50 mcg 00 every Medical tablet morning. Branch levothyroxi 2020-0 Yes [id number] 50ug Take 1 Univers ne 4-23 tablet by ity of (SYNTHROID) 00:00: mouth [place] 50 mcg 00 every Medical tablet morning. Branch levothyroxi 2020-0 Yes [id number] 50ug Take 1 Univers ne 4-23 tablet by ity of (SYNTHROID) 00:00: mouth [place] 50 mcg 00 every Medical tablet morning. Branch levothyroxi 2020-0 Yes [id number] 50ug Take 1 Univers ne 4-23 tablet by ity of (SYNTHROID) 00:00: mouth [place] 50 mcg 00 every Medical tablet morning. Branch levothyroxi 2020-0 Yes [id number] 50ug Take 1 Univers ne 4-23 tablet by ity of (SYNTHROID) 00:00: mouth [place] 50 mcg 00 every Medical tablet morning. Branch levothyroxi 2020-0 Yes [id number] 50ug Take 1 Univers ne 4-23 tablet by ity of (SYNTHROID) 00:00: mouth [place] 50 mcg 00 every Medical tablet morning. Branch levothyroxi 2020-0 Yes [id number] 50ug Take 1 Univers ne 4-23 tablet by ity of (SYNTHROID) 00:00: mouth [place] 50 mcg 00 every Medical tablet morning. Branch levothyroxi 2020-0 Yes [id number] 50ug Take 1 Univers ne 4-23 tablet by ity of (SYNTHROID) 00:00: mouth [place] 50 mcg 00 every Medical tablet morning. Branch levothyroxi 2020-0 Yes [id number] 50ug Take 1 Univers ne 4-23 tablet by ity of (SYNTHROID) 00:00: mouth [place] 50 mcg 00 every Medical tablet morning. Branch levothyroxi 2020-0 Yes [id number] 50ug Take 1 Univers ne 4-23 tablet by ity of (SYNTHROID) 00:00: mouth [place] 50 mcg 00 every Medical tablet morning. Branch levothyroxi 2020-0 Yes [id number] 50ug Take 1 Univers ne 4-23 tablet by ity of (SYNTHROID) 00:00: mouth [place] 50 mcg 00 every Medical tablet morning. Branch levothyroxi 2020-0 Yes [id number] 50ug Take 1 Univers ne 4-23 tablet by ity of (SYNTHROID) 00:00: mouth [place] 50 mcg 00 every Medical tablet morning. Branch levothyroxi 2020-0 2020- No [id number] 50ug Take 1 Univers ne 4-23 02-20 tablet by ity of (SYNTHROID) 00:00: 00:[place] 00 :00 every Medical tablet morning. Branch levothyroxi 2020-0 2020- No [id number] 50ug Take 1 Univers ne 4-23 02-20 tablet by ity of (SYNTHROID) 00:00: 00:[place] 00 :00 every Medical tablet morning. Branch No known No Univers medications ity of [facility] clonidine clonidine No 1 clonidine [place] HCl 0.1 mg HCl 0.1 mg HCl 0.1 mg Communi tablet Take tablet Take tablet ty 1 tablet by 1 tablet by Take 1 Hospita oral route oral route tablet by l as directed as directed oral route Clinics for 1 day. for 1 day. as directed for 1 day. ciprofloxac ciprofloxac No ciprofloxa [place] in 500 mg in 500 mg amy 500 mg Communi tablet tablet tablet ty Hospita l Clinics hydrocodone hydrocodone No hydrocodon [place] 5 5 e 5 Communi mg-acetamin mg-acetamin mg-acetami ty ophen 325 ophen 325 nophen 325 Hospita mg tablet mg tablet mg tablet l Clinics nifedipine nifedipine No nifedipine [place] ER 60 mg ER 60 mg ER 60 mg Com tatiana tablet,exte tablet,exte tablet,ext ty nded nded ended Hospita release release release l Clinics Immunizations Ordered Filled Date Status Comments Source Immunization Name Immunization Name Td 2014-11-14 Completed University of 00:00: [facility] Tdap 2014-11-14 Completed University of 00:00: [facility] Tdap 2014-11-14 Completed University of 00:00: [facility] Tdap 2014-11-14 Completed University of 00:00: [facility] Tdap 2014-11-14 Completed University of 00:00: [facility] Tdap 2014-11-14 Completed University of 00:00:00 [facility] Tdap 2014-11-14 Completed University of 00:00: [facility] Tdap 2014-11-14 Completed University of 00:00: [facility] Tdap 2014-11-14 Completed University of 00:00: [facility] Tdap 2014-11-14 Completed University of 00:00:00 [facility] Tdap 2014-11-14 Completed University of 00:00:00 [facility] Tdap 2014-11-14 Completed University of 00:00: [facility] Tdap 2014-11-14 Completed University of 00:00:00 [facility] TDAP 2014-11-14 Completed University of 00:00:00 [facility] TDAP 2014-11-14 Completed University of 00:00: [facility] TDAP 2014-11-14 Completed University of 00:00: [facility] TDAP 2014-11-14 Completed University of 00:00: [facility] TDAP 2014-11-14 Completed University of 00:00:00 [facility] TDAP 2014-11-14 Completed University of 00:00:00 [facility] TDAP 2014-11-14 Completed University of 00:00:00 [place] [facility] TDAP 2014-11-14 Completed University of 00:00:00 [place] [facility] TDAP 2014-11-14 Completed University of 00:00:00 [place] [facility] TDAP 2014-11-14 Completed University of 00:00:00 [place] [facility] Tdap 2014-11-14 Completed University of 00:00:00 [place] [facility] Tdap 2014-11-14 Completed University of 00:00:00 [place] [facility] TDAP Unknown Completed [facility] Vital Signs Vital Name Observation Time Observation Value Comments Source Systolic blood 2020-07-01 17:37:00 134 mm[Hg] Univer sity of pressure [place] [facility] [place] Diastolic blood 2020-07-01 17:37:00 90 mm[Hg] Unive rsity of pressure [facility] Heart rate 2020-07-01 17:37:00 89 /min Universi ty of [facility] Body temperature 2020-07-01 17:37:00 36.94 [facility] [facility] Res[facility] 2020-07-01 17:37:00 18 /min Univ ersity of [place] [facility] [place] Body weight 2020-07-01 17:37:00 88.089 kg Universi ty of [place] [facility] [place] BMI 2020-07-01 17:37:00 33.32 kg/m2 Universi ty of [place] [facility] Oxygen saturation in 2020-07-01 17:37:00 100 /min University of Arterial blood by [facility] Pulse oximetry Branch Systolic blood 2020-06-24 19:13:00 118 mm[Hg] Univer sity of pressure [place] [facility] Diastolic blood 2020-06-24 19:13:00 79 mm[Hg] Unive rsity of pressure [place] [facility] Heart rate 2020-06-24 19:13:00 104 /min Universi ty of [place] [facility] Body temperature 2020-06-24 19:13:00 37.44 [place] Univ ersity of [place] [facility] Body weight 2020-06-24 19:13:00 89.404 kg Universi ty of [place] [facility] BMI 2020-06-24 19:13:00 33.82 kg/m2 Universi ty of [place] [facility] Oxygen saturation in 2020-06-24 19:13:00 97 /min University of Arterial blood by [facility] Pulse oximetry Branch Systolic blood 2020-06-17 19:33:00 129 mm[Hg] Univer sity of pressure [place] [facility] Diastolic blood 2020-06-17 19:33:00 78 mm[Hg] Unive rsity of pressure [place] [facility] Heart rate 2020-06-17 19:33:00 108 /min Universi ty of [place] [facility] Body temperature 2020-06-17 19:33:00 36.78 [place] Univ ersity of [place] [facility] Respiratory rate 2020-06-17 19:33:00 14 /min Univ ersity of [place] [facility] Body weight 2020-06-17 19:33:00 90.266 kg Universi ty of [place] [facility] BMI 2020-06-17 19:33:00 34.14 kg/m2 Universi ty of [place] [facility] Oxygen saturation in 2020-06-17 19:33:00 97 /min University of Arterial blood by [facility] Pulse oximetry Branch Height 2020-06-13 00:00:00 64.5 [in_i] [facility] s Systolic blood 2020-06-12 13:00:00 125 mm[Hg] Univer sity of pressure [place] [facility] Diastolic blood 2020-06-12 13:00:00 85 mm[Hg] Unive rsity of pressure [place] [facility] Heart rate 2020-06-12 13:00:00 78 /min Universi ty of [place] [facility] [place] Body temperature 2020-06-12 13:00:00 36.72 [place] Univ ersity of [facility] Respiratory rate 2020-06-12 13:00:00 16 /min Univ ersity of [place] [facility] Oxygen saturation in 2020-06-12 13:00:00 99 /min University of Arterial blood by [facility] Pulse oximetry Branch Body weight 2020-06-09 15:00:00 96.6 kg Universi ty of [place] [facility] BMI 2020-06-09 15:00:00 36.54 kg/m2 Universi ty of [place] [facility] Body height 2020 02:00:00 162.6 cm Universi ty of [place] [facility] BP Diastolic 2020-05-19 00:00:00 120 mm[Hg] [facility] s Height 2020-05-19 00:00:00 64.5 [in_i] [facility] s BMI (Body Mass 2020-05-19 00:00:00 33.8 kg/m2 [facility] s BP Systolic 2020-05-19 00:00:00 168 mm[Hg] [facility] s Body Weight 2020-05-19 00:00:00 3200 [oz_av] [facility] s Systolic blood 2019-09-03 14:31:00 140 mm[Hg] Univer sity of pressure [facility] Diastolic blood 2019-09-03 14:31:00 89 mm[Hg] Unive rsity of pressure [facility] Heart rate 2019-09-03 14:30:00 97 /min Universi ty of [facility] Body temperature 2019-09-03 14:30:00 37.06 [place] Univ ersity of [facility] Respiratory rate 2019-09-03 14:30:00 18 /min Univ ersity of [facility] Body weight 2019-09-03 14:30:00 87.998 kg Universi ty of [place] [facility] BMI 2019-09-03 14:30:00 33.30 kg/m2 Universi ty of [place] [facility] Systolic blood 2019-08-30 14:21:00 119 mm[Hg] Univer sity of pressure [facility] Diastolic blood 2019-08-30 14:21:00 74 mm[Hg] Unive rsity of pressure [facility] Heart rate 2019-08-30 14:21:00 97 /min Universi ty of [facility] Body temperature 2019-08-30 14:21:00 36.83 [place] Univ ersity of [facility] Respiratory rate 2019-08-30 14:21:00 18 /min Univ ersity of [facility] Body height 2019-08-30 14:21:00 162.6 cm Universi ty of [place] [facility] Body weight 2019-08-30 14:21:00 89.994 kg Universi ty of [place] [facility] BMI 2019-08-30 14:21:00 34.06 kg/m2 Universi ty of [facility] Systolic blood 2019-08-23 14:30:00 121 mm[Hg] Univer sity of pressure [facility] Diastolic blood 2019-08-23 14:30:00 83 mm[facility]Hg[facility] Heart rate 2019-08-23 14:30:00 81 /min Universi ty [facility] Body temperature 2019-08-23 14:30:[address] [facility] Res[facility] rate 2019-08-23 14:30:00 18 /min [facility] Body height 2019-08-23 14:30:00 162.6 cm Universi ty of [facility] Body weight 2019-08-23 14:30:00 89.359 kg Universi ty of [facility] BMI 2019-08-23 14:30:00 33.81 kg/m2 Universi ty [facility] Oxygen saturation in 2019-08-23 14:30:00 99 /min [facility] Arterial blood by [facility] Pulse oximetry [place] Body height 2019-08-09 18:38:00 163.8 cm Universi ty [facility] Body weight 2019-08-09 18:38:00 86.183 kg Universi ty [facility] BMI 2019-08-09 18:38:00 32.11 kg/m2 Universi [facility] Procedures Procedure Date / Time Performing Clinician Source Performed EXTERNAL PROVIDER RECORDS 2020-07-14 05:01:00 Doctor Unassigned, [facility] [place] [facility] CBC WITHOUT DIFF 2020-06-12 14:17:00 Elva Garcia [facility] BASIC METABOLIC PANEL 2020-06-11 10:19:00 Elva Garcia [facility] (NA, K, CL, CO2, GLUCOSE, Medica l Branch BUN, CREATININE, [place]) CBC WITH DIFF 2020-06-11 10:19:00 Elva Garcia [place] [facility] [place] [facility] QUANT TISSUE 2020-06-10 17:50:58 Olga Parker [facility] MINOR BURN DEBRIDEMENT 2020-06-10 15:26:00 Olga Parker [facility] XEN[facility]FT [facility]PLICATION 2020-06-10 15:26:00 Olga Parker [facility] BASIC METABOLIC PANEL 2020-06-10 08:35:00 Elva Garcia [facility] (NA, K, CL, CO2, GLUCOSE, Medica l Branch BUN, CREATININE, CA) CBC WITH DIFF 2020-06-10 08:35:00 Elva Gacria [facility] VANCOMYCIN TROUGH 2020-06-09 08:46:00 Dinh Moody [facility] THYROID STIMULATING 2020 10:57:00 Elva Garcia [facility] HORMONE [facility] BASIC METABOLIC PANEL 2020 10:57:00 Sherrill Strickland [facility] (NA, K, CL, CO2, GLUCOSE, Yudi Medica l Branch BUN, CREATININE, CA) CBC WITH DIFF 2020 10:57:00 Sherrill Strickland [facility] LACTIC ACID WHOLE BLOOD 2020 10:57:00 Elva Garcia [facility] FREE T3 2020 10:57:00 Elva Garcia [facility] LACTIC ACID WHOLE BLOOD 2020 00:27:00 Elva Garcia [facility] ABORH CONFIRMATION 2020-06-07 22:30:00 Dinh Moody [facility] COVID-19 (MOLECULAR 2020-06-07 21:29:00 Elva Garcia [facility] TESTING [facility] NUCLEIC ACID AMPLIFICATION) LAB ONLY COVID 2020-06-07 21:29:00 Elva Garcia [facility] HB ABO GROUPING 2020-06-07 21:00:00 Elva Garcia [facility] XR FOOT 3+ VW BILATERAL 2020-06-07 20:34:00 Sherrill Strickland [facility] XR HAND 3+ VW RIGHT 2020-06-07 20:34:00 Sherrill Strickland [facility] XR WRIST 3+ VW RIGHT 2020-06-07 20:34:00 Sherrill Strickland [facility] LACTIC ACID WHOLE BLOOD 2020-06-07 19:41:00 Elva Garcia [facility] WOUND/ASPIRATE OR ABSCESS 2020-06-07 19:35:00 Sherrill Strickland [facility] CULTURE [facility] WOUND CULTURE 2020-06-07 19:35:00 Sherrill Strickland [facility] PHOSPHORUS 2020-06-07 19:34:00 Elva Garcia [facility] MAGNESIUM 2020-06-07 19:34:00 Elva Garcia [facility] IONIZED CALCIUM 2020-06-07 19:34:00 lEva Garcia [facility] TEST, SERUM 2020-06-07 19:34:00 Elva Garcia [facility] FREE T4 2020-06-07 19:34:00 Elva Garcia [facility] HEPATIC FUNCTION PANEL 2020-06-07 19:34:00 Elva Garcia [facility] ([id number]) (ALB,T.PRO,BILI [facility] T,BU/BC,ALT,AST,ALK PHOS) BASIC METABOLIC PANEL 2020-06-07 19:34:00 Elva Garcia [facility] (NA, K, CL, CO2, GLUCOSE, Medica l Branch BUN, CREATININE, CA) CBC WITH DIFF 2020-06-07 19:34:00 Elva Garcia [facility] ACTIVATED PARTIAL 2020-06-07 19:34:00 Sherrill Strickland [facility] THRMPLAS FRANK [facility] WOUND CULTURE 2020-06-07 19:34:00 Sherrill Strickland [facility] OB TRANSVAGINAL 2019-09-03 16:14:19 Fahad Asencio [facility] ULTRASOUND 2019-09-03 05:01:00 Doctor Unamathew, [facility] [place] [facility] OB TRANSVAGINAL 2019-08-30 15:49:20 Fahad Asencio [facility] DISABILITY/FMLA 2019-08-30 05:01:00 Doctor Unassgeorgette, [facility] [place] Medical Branch FIRST 2019-08-28 20:40:09 Alanna Canales [facility] TRIMESTER LESS THAN 14 Medical B ranch WEEKS WITH TRANSVAGINAL IMMTRAC2 CONSENT 2019-08-23 05:01:00 Doctor Unassigned, [facility] [place] [facility] INSURANCE CORRESPONDENCE 2019-08-07 05:01:00 Doctor Unassigned, [facility] [place] Medical Branch Delivery 2009-01-22 00:00:00 [facility] Delivery 2005-08-06 00:00:00 [facility] Delivery 2003-07-31 00:00:00 [facility] Procedure on Foot [facility] Plan of Care Planned Activity Planned Date Details Comments Source Future Scheduled Test 2022-12-17 [facility] Seasonal (>/= 19 yrs) [code = IMM Influenza Seasonal (>/= 19 yrs)] Future Scheduled Test 2022 Breast Cancer [facility] 00:00:00 (Yearly) [code = Breast Cancer Scrn (Yearly)] Diagnostic Test 2020-05-19 rapid SARS CoV 2 Ag, [facility] Pending 00:00:00 QL IA, respiratory Hospital Clinics specimen [code = rapid SARS CoV 2 Ag, QL IA, respiratory specimen] Diagnostic Test 2020-05-19 CMP, serum or plasma [facility] Pending 00:00:00 [code = CMP, serum Hospital Clinics or plasma] Diagnostic Test 2020-05-19 lipid panel w/ [facility] Pending 00:00:00 direct LDL, serum Hospital C linics [code = lipid panel w/ direct LDL, serum] Diagnostic Test 2020-05-19 CBC w/ diff [code = [facility] Pending 00:00:00 CBC w/ diff] Hospital Clinic s Diagnostic Test 2020-05-19 TSH + free T4, serum [facility] Pending 00:00:00 [code = TSH + free [facility] T4, serum] Diagnostic Test 2020-05-19 vitamin D3, [place] [facility] Pending 00:00:00 25-hydroxy, serum Hospital C linics [code = vitamin D3, 25-hydroxy, serum] Future Scheduled Test 2003 Screening for [employer] 00:00:00 malignant neoplasm of cervix (procedure) [code = 808273512] Future Scheduled Test 2003 Screening for Russell rogel [facility] 00:00:00 malignant neoplasm of cervix (procedure) [code = 506467673] Future Scheduled Test 1982 COVID-19 Vaccine Luevano is [facility] 00:00:00 (#1) [code = COVID-19 Vaccine (#1)] Instructions [facility] Encounters Start End Encounter Admission Attending Care Care Encounter Source Date/Time Date/Time Type Type Clinicians Facility Department ID 2022-05-19 2022-05-19 Outpatient L_Pena [facility] [id number] 230 [place] 00:00:00 00:00:00 201 [facility] 2022-05-19 2022-05-19 [id number] [place] 00:00:00 00:00:00 207 [facility] 2022-05-13 2022-05-13 Outpatient L_Pena [facility] [id number] 230 [place] 00:00:00 00:00:00 126 Commun i [facility] H[facility] 2020-09-12 2020-09-12 Outpatient [facility] [id number] [place] 01:02:00 01:02:00 _L 528 [facility] i [facility] 2020-08-08 2020-08-08 Outpatient [facility] [id number] [place] 01:03:00 01:03:00 _L 423 [facility] i [facility] 2020-08-01 2020-08-01 [facility] [id number] [place] 00:00:00 00:00:00 ANURADHA [facility] 2020-07-16 2020-07-21 Inpatient KERON [facility] [id number] [place] 04:01:00 13:54:00 [facility] 2020-07-15 2020-07-16 [facility] [id number] [place] 20:09:00 03:43:00 [facility] 2020-07-14 2020-07-14 Orders Doctor SEAY 1.2.840.114 [id number] [facility] 00:00:00 00:00:00 Only Unassigned, GRAY 350.1.13.10 ity of [facility] 42.7.2.686 Ciro as [phone] [facility] [address] 2020-07-04 2020-07-04 Outpatient [facility] 457 [place] 01:02:00 01:02:00 _L 319 [facility] 2020-07-01 2020-07-01 Deo Ford 1.2.840.114 [id number] Univers 12:30:00 23:59:00 Encounter Dinh Moody Gray [id number] ity [place] [id number] Ciro as [phone] [facility] 184 [place] 2020-07-01 2020-07-01 Outpatient Malcolm MOON [facility] [id number] Univers 12:30:00 12:30:00 DEO isidro [facility] 2020-06-24 2020-06-24 Constanza Ford 1.2.840.114 [id number] Univers 12:30:00 23:59:00 Encounter Deo Castellano [id number] [place] [id number] Ciro as [phone] [address] 2020-06-24 2020-06-24 Outpatient [facility] [id number] Univers 12:30:00 12:30:00 DEO isidro [facility] 2020-06-17 2020-06-17 Constanza Ford 1.2.840.114 [id number] Univers 13:00:00 23:59:00 Encounter Deo Castellano [id number] [place] [address].7.2.686 Ciro as [phone] [address] 2020-06-17 2020-06-17 Outpatient David [facility] [id number] Univers 13:00:00 13:00:00 DEO isidro [facility] 2020-06-16 2020-06-16 Outpatient [facility] 457 [place] 10:52:00 10:52:00 _L 301 Commun i [facility] Clinics 2020-06-13 2020-06-13 Outpatient [facility] 457 0 [place] 01:15:00 01:15:00 _L 226 Commun i ty Hospita [facility] 2020-06-13 2020-06-13 Transition Edvin Bush 1.2.840.114 [id number] Univers 00:00:00 00:00:00 of Care Sana Diallo Ramon [id number] i ty of [place] 4.2.7.2.686 Kiana juan f [phone] [address] 2020-06-13 2020-06-13 Outpatient [facility] 13a [id number] 00:00:00 00:00:00 , Lulu [id number] Laura [phone] [id number] 2020-06-13 2020-06-13 Lulu Sanchez [facility] [place] [facility] [place] 202 [id number] [place] 00:00:00 00:00:00 [facility] Hospital - ty [address], [place] [address] , Ph. 2020-06-07 2020-06-12 [facility] Constanza 1.2.840.114 [id number] Univers 13:08:00 13:41:00 Encounter Elva Garcia [id number] ity of [facility] 4.2.7.2.686 Olga Medley [phone] [address] 2020-06-07 2020-06-12 Inpatient David PARKER CTJANESSA SBU [id number] Univers 13:08:00 13:41:00 OLGA isidro of [facility] 2020-05-20 2020-05-20 Outpatient [facility] 457 0 [place] 09:46:00 09:46:00 _L 202 Commun i ty Hospita [facility] 2020-05-19 2020-05-19 Outpatient [facility] 457 [place] 05:44:00 05:44:00 _L 201 Commun i ty Hospita l Clinics 2020-05-19 2020-05-19 Outpatient [facility] [id number] 00:00:00 00:00:00 , Lulu [id number] Laura [phone] [id number] 2020-05-19 2020-05-19 Lulu Sanchez [facility] [place] [facility] [place] 202 [id number] [place] 00:00:00 00:00:00 [facility] windy dominguez, SHAQP-C: Hospital - ty [address] [place] [address], [facility] [address], [place] [address] , Ph. 2020-05-15 2020-05-15 Outpatient [facility] 457 [place] 01:04:00 01:04:00 _L 128 Commun i ty Hospita l Clinics 2020-04-24 2020-04-24 Laboratory Lab, Adc Fam Pob I [facility] 1.2. 840.114 [id number] Univers 13:09:56 13:29:56 Only Trisha [facility] 350.1.13.10 ity of [place] 4.2.7.2.686 Ciro as Professio [phone] [place] dical [place]al 044 [facility] One 2020-04-24 2020-04-24 Outpatient R YONY, [facility] [id number] Univers 13:20:00 13:20:00 TRISHA ity [facility] 2020-04-08 2020-04-08 Laboratory Lab, [facility] Fam Pob I [facility] 1.2. 840.114 [id number] Univers 14:20:41 14:40:41 Only [facility] 350.1.13.10 ity of [place] 4.2.7.2.686 Ciro as Professio [phone] [place] dical nal [address] [place] Office [facility] One 2020-04-08 2020-04-08 Outpatient R [facility] [id number] Univers 14:20:00 14:20:00 ity of [facility] 2020-03-21 2020-03-21 Laboratory Lab, [facility] Pob I [facility] 1.2. 840.114 [id number] Univers 17:57:54 18:17:54 Only Unknown, Attending Health 350.1.13.10 ity of [place] 4.2.7.2.686 Ciro as Professio [phone] [place] dical nal 044 [facility] 2020-03-21 2020-03-21 Outpatient R [facility] [id number] Univers 18:00:00 18:00:00 ity of [facility] 2019-10-25 2019-10-25 Patient Doctor DAWOOD 1..840.114 [id number] Univers 00:00:00 00:00:00 Secure Msg Unassigned, GRAY 350.1.13.10 [facility] 4.2.7.2.686 Ciro as [phone] [address] 2019-10-23 2019-10-23 Laboratory Lab, [facility] 1.2. 840.114 [id number] Univers 13:51:52 14:11:52 Only Anene, Magnus [facility] 350.1.13.10 ity of [place] 4.2.7.2.686 Ciro as Professio [phone] [place] dical [place]al [address] [place] [address] One 2019-10-23 2019-10-23 Outpatient R RORY [facility] [id number] Univers 14:00:00 14:00:00 MAGNUS ity of [facility] 2019-09-13 2019-09-13 Outpatient R LUIS M [facility] [id number] Univers 15:30:00 15:30:00 ity of [facility] 2019-09-11 2019-09-11 Outpatient R LUIS M FAHAD [facility] [id number] Univers 14:15:00 14:15:00 ity of [facility] 2019-09-03 2019-09-03 Routine Luis M [facility] 1.2.037.825 [id number] Univers 09:22:09 10:21:02 Cam [place] 350.1.13.10 ity of [place] Profess[place] [phone] Me dic[address] 2019-09-03 2019-09-03 Outpatient R LUIS M FAHAD [facility] [id number] Univers 09:15:00 09:15:00 ity of [facility] 2019-09-03 2019-09-03 Orders Doctor DAWOOD 1.2.840.114 [id number] Univers 00:00:00 00:00:00 Only Unassigned, GRAY 350.1.13.10 ity of [place] [facility] 4.2.7.2.686 Ciro as [phone] [address] 2019-08-30 2019-08-30 Routine Luis M [facility] 1.2.726.706 [id number] Univers 09:11:40 10:24:05 Td Landeros 350.1.13.10 ity of [place] [facility] [phone] [address] 2019-08-30 2019-08-30 Outpatient R LUIS M FAHAD [facility] [id number] Univers 09:15:00 09:15:00 ity of [facility] 2019-08-30 2019-08-30 Orders Doctor DAWOOD 1.2.840.114 [id number] Univers 00:00:00 00:00:00 Only Unassigned, GRAY 350.1.13.10 ity of [place] [facility] 4.2.7.2.686 Ciro as [phone] [address] 2019-08-28 2019-08-28 Outpatient R ALLY [facility] [id number] Univers 14:33:04 23:59:00 ALANNA ity of [facility] 2019-08-28 2019-08-28 [facility] 1.2.840.114 [id number] Univers 14:33:00 23:59:00 Encounter Alanna Landeros 350.1.13.10 ity of [place]7.2.[place] [phone] [facility] [address] [place] 2019-08-28 2019-08-28 Telephone Asencio [facility] 1.2.840.114 [id number] Univers 00:00:00 00:00:00 Cam [place] 350.1.13.10 i ty of [place]2.[place] [phone] [place] dic[address] 2019-08-27 2019-08-27 Routine Luis M [facility] 1.2.298.853 [id number] Univers 15:30:00 15:45:00 Cam [place] 350.1.13.10 ity of [place].2.[place] Profess[place] [phone] [address] 2019-08-27 2019-08-27 Outpatient R LUIS M FAHAD [facility] [id number] Univers 15:30:00 15:30:00 ity of [facility] 2019-08-27 2019-08-27 Letter Luis M [facility] 1.2.037.148 [id number] Univers 00:00:00 00:00:00 (Out) Cam [place] 350.1.13.10 i ty of [place] [phone] [address] 2019-08-26 2019-08-26 Nurse DAWOOD Smith 1.2.834.858 [id number] Univers 00:00:00 00:00:00 Triage Prasanna GRAY 350.1.13.10 it y of HOSPITAL 4.2.7.2.686 Ciro as [phone] [address] 2019-08-23 2019-08-23 Routine Luis M [facility] 1.2.843.838 [id number] Univers 09:13:35 10:00:19 Cam [place] 350.1.13.10 ity of [place] [phone] [address] 2019-08-23 2019-08-23 Outpatient R LUIS M [facility] [id number] Univers 09:15:00 09:15:00 ity of [facility] 2019-08-23 2019-08-23 Orders Doctor SEAY 1.2.840.114 [id number] Univers 00:00:00 00:00:00 Only Unassigned, GRAY 350.1.13.10 ity of [place] [facility] 4.2.7.2.686 Ciro as [phone] [address] 2019-08-22 2019-08-22 Telephone Fahad Asencio [facility] 1.2.840.114 [id number] Univers 00:00:00 00:00:00 Td Landreos 350.1.13.10 i ty of [place] [phone] [place] dical nal [address] [facility] 2019-08-10 2019-08-10 General 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 2, Adc Lab [facility] 1.2.840.114 [id number] Univers 13:54:37 14:09:37 Visit Fahad Asencio 350.1.13.10 ity of [place].2.[place] [phone] [place] dical nal [address] [facility] 2019-08-10 2019-08-10 Outpatient R [facility] [id number] Univers 14:00:00 14:00:00 ity of [facility] 2019-08-09 2019-08-09 [facility]ici [facility] 1.2.840.114 [id number] Univers 08:11:27 15:01:44 ne Visit Td Landeros 350.1.13.10 ity of [place].2.[place] Profess[place] [phone] [place] dical [place]al [address] [place] [address] 2019-08-09 2019-08-09 Outpatient R [facility] [id number] Univers 14:00:00 14:00:00 ity of [facility] 2019-08-07 2019-08-07 Orders Doctor DAWOOD 1.2.840.114 [id number] Univers 00:00:00 00:00:00 Only Unassigned, GRAY 350.1.13.10 ity of [place] [facility] 4.2.7.2.686 Ciro as [phone] [address] Results Test Description Test Time Test Comments Results Result Comments Source QUANT TISSUE 2020-06-12 17:22:00 Test Item Value Reference Range Interpretation Comme nts Quantitative Tissue Culture Other - 1.6 x 10 to the 4th Amber Count Per Gram (test code = 45793-0) Bacillus species, not of Tissue anthracis Gram stain (test code = 664-3) Few PMNs or Mononuclear cells observed [facility] WITHOUT [id number] 14:29:00 Test Item Value Reference Range Interpretation Comments WBC (test code = See_Comment [Automated message] The 6690-2) system which ge nerated this result tra nsmitted reference range : 4.30 - 11.10 10*3/?L. The reference range was not used to interpr et this result as normal/abnormal . RBC (test code = See_Comment [Automated message] The 789-8) system which ge nerated this result tra nsmitted reference range : 3.93 - 5.25 10*6/?L. T he reference range was not used to interpr et this result as normal/abnormal . HGB (test code = 12.9 g/dL 11.6-15 718-7) HCT (test code = 38.3 % 35.7-45.2 4544-3) MCH (test code = 31.9 pg 25.9-32.8 785-6) MCV (test code = 94.8 fL 80.6-95.5 787-2) MCHC (test code = 33.7 g/dL 31.6-35.1 786-4) PLT (test code = See_Comment [Automated message] The 777-3) system which nerated this result tra nsmitted reference range : 166 - 358 10*3/?L. Th e reference range was not used to interpr et this result as normal/abnormal . MPV (test code = 10.1 fL 9.5-12.9 55357-4) RDW-CV (test code = 13.0 % 12-15.5 788-0) RDW-SD (test code = 45.3 fL 39-49.9 99539-5) NRBC x10^3 (test <0.01 See_Comment [Automated message] The code = 3926942417) system [facility] generated this result tra nsmitted reference range : 10*3/?L. The reference r kendra was not used to int erpret this result as normal/abnormal . NRBC/100 WBC (test See_Comment [Automat ed message] The code = 0279734951) system [facility] generated this result tra nsmitted reference range : 0.0 - 10.0 /100 WBCs. The reference range was not used to interpr et this result as normal/abnormal . IPF % (test code = 4296366435) [facility] (NA, K, CL, CO2, GLUCOSE, BUN, CREATININE, CA)2020-06-11 11:23:00 Test Item Value Reference Range Interpretation Comments NA (test code = 136 mmol/L 135-145 6487657532) K (test code = 3.5 mmol/L 3.5-5 5688827963) CL (test code = 107 mmol/L 98-108 6126765135) CO2 TOTAL (test code = 26 mmol/L 23-31 1282394417) AGAP (test code = 2-16 9202308910) BUN (test code = 11 mg/dL 7-23 1575443224) GLUCOSE (test code = 99 mg/dL 70-110 2233310366) CREATININE (test code = 0.58 mg/dL 0.5-1.04 2018378307) CALCIUM (test code = 8.1 mg/dL 8.6-10.6 L 3068480457) eGFR Calculation mL/min/1.73m2 (Non-) (test code = 2049517551) eGFR Calculation mL/min/1.73m2 () (test code = 3117261445) GIORGIO (test code = GIORGIO) Association of Glomerular Filtration Rate (GFR) and Staging of Kidney Disease* + --+ --+ ------+| GFR (mL/min/1.73 m2) ?| With Kidney Damage ?| ?Without Kidney Damage+ --------+ --------+ +| ?>90 ?| ?Stage one ?| ? Normal ?+ ---+ ---+ -------+| ?60-89 ?| ?Stage two ?| ? Decreased GFR ? + --+ --+ ------+| ?30-59 ?| ?Stage three ?| ? Stage three ? + --+ --+ ------+| ?15-29 ?| ?Stage four ? | ? Stage four ?+ ---+ ---+ -------+| ?<15 (or dialysis) ? ?| ?Stage five ? | ? Stage five ?+ ---+ ---+ -------+ *Each stage assumes the associated GFR level has been in effect for at least three months. ?Stages 1 to 5, with or without kidney disease, indicate chronic kidney disease. Notes: Determination of stages one and two (with eGFR >59mL/min/1.73 m2) requires estimation of kidney damage for at least three months as defined by structural or functional abnormalities of the kidney, manifested by either:Pathological abnormalities or Markers of kidney damage (including abnormalities in the composition of the blood or urine or abnormalities in imaging tests). Lab Interpretation Abnormal (test code = 55212-0) [facility] WITH [id number] 10:59:00 Test Item Value Reference Range Interpretation Comments WBC (test code = See_Comment [Automated 5620-2) message] The sy stem which generated this result transmitted reference range : 4.30 - 11.10 10*3/?L. The reference range was not used to interpret this result as normal/abnormal . RBC (test code = See_Comment L [Automated 489-8) message] The sy stem which generated this result transmitted reference range : 3.93 - 5.25 10*6/?L. The reference range was not used to interpret this result as normal/abnormal . HGB (test code = 12.2 g/dL 11.6-15 718-7) HCT (test code = 35.9 % 35.7-45.2 4544-3) MCV (test code = 94.5 fL 80.6-95.5 787-2) MCH (test code = 32.1 pg 25.9-32.8 785-6) MCHC (test code = 34.0 g/dL 31.6-35.1 786-4) RDW-SD (test code = 43.2 fL 39-49.9 50952-6) RDW-CV (test code = 12.4 % 12-15.5 788-0) PLT (test code = See_Comment [Automated 777-3) message] The sy stem which generated this result transmitted reference range : 166 - 358 10*3/ ?L. The reference r kendra was not used to interpret this result as normal/abnormal . MPV (test code = 10.2 fL 9.5-12.9 03626-8) NRBC/100 WBC (test See_Comment [Automat ed code = 4681509723) message] The system which generated this result transmitted reference range : 0.0 - 10.0 /100 WBCs. The refer ence range was not u sed to interpret th is result as normal/abnormal . NRBC x10^3 (test code <0.01 See_Comment [Auto mated = 5824106857) message] The s ystem which generated this result transmitted reference range : 10*3/?L. The reference range was not used to interpret this result as normal/abnormal . GRAN MAT (NEUT) % 71.9 % (test code = 770-8) IMM GRAN % (test code 0.40 % = 4667635561) LYMPH % (test code = 17.6 % 736-9) MONO % (test code = 9.1 % 5905-5) EOS % (test code = 0.7 % 713-8) BASO % (test code = 0.3 % 706-2) GRAN MAT x10^3(ANC) 5.27 10*3/uL 1.88-7.09 (test code = 2778418711) IMM GRAN x10^3 (test 0.03 10*3/uL 0-0.06 code = 6103649268) LYMPH x10^3 (test code 1.29 10*3/uL 1.32-3.29 L = 731-0) MONO x10^3 (test code 0.67 10*3/uL 0.33-0.92 = 742-7) EOS x10^3 (test code = 0.05 10*3/uL 0.03-0.39 711-2) BASO x10^3 (test code <0.03 0.01-0.07 = 704-7) Lab Interpretation Abnormal (test code = 54531-2) [facility] METABOLIC PANEL (NA, K, CL, CO2, GLUCOSE, BUN, CREATININE, CA)2020-06-10 09:44:00 Test Item Value Reference Range Interpretation Comments NA (test code = 136 mmol/L 135-145 0314397485) K (test code = 3.5 mmol/L 3.5-5 9908179975) CL (test code = 105 mmol/L 98-108 3890971638) CO2 TOTAL (test code = 26 mmol/L 23-31 5901428306) AGAP (test code = 2-16 4328942064) BUN (test code = 5 mg/dL 7-23 L 9143419322) GLUCOSE (test code = 91 mg/dL 70-110 8739325591) CREATININE (test code = 0.56 mg/dL 0.5-1.04 1274691409) CALCIUM (test code = 8.6 mg/dL 8.6-10.6 8252596546) eGFR Calculation mL/min/1.73m2 (Non-) (test code = 7345520222) eGFR Calculation mL/min/1.73m2 () (test code = 5547810608) GIORGIO (test code = GIORGIO) Association of Glomerular Filtration Rate (GFR) and Staging of Kidney Disease* + --+ --+ ------+| GFR (mL/min/1.73 m2) ?| With Kidney Damage ?| ?Without Kidney Damage+ --------+ --------+ +| ?>90 ?| ?Stage one ?| ? Normal ?+ ---+ ---+ -------+| ?60-89 ?| ?Stage two ?| ? Decreased GFR ? + --+ --+ ------+| ?30-59 ?| ?Stage three ?| ? Stage three ? + --+ --+ ------+| ?15-29 ?| ?Stage four ? | ? Stage four ?+ ---+ ---+ -------+| ?<15 (or dialysis) ? ?| ?Stage five ? | ? Stage five ?+ ---+ ---+ -------+ *Each stage assumes the associated GFR level has been in effect for at least three months. ?Stages 1 to 5, with or without kidney disease, indicate chronic kidney disease. Notes: Determination of stages one and two (with eGFR >59mL/min/1.73 m2) requires estimation of kidney damage for at least three months as defined by structural or functional abnormalities of the kidney, manifested by either:Pathological abnormalities or Markers of kidney damage (including abnormalities in the composition of the blood or urine or abnormalities in imaging tests). Lab Interpretation Abnormal (test code = 43165-3) [facility] WITH [id number] 09:17:00 Test Item Value Reference Range Interpretation Comments WBC (test code = See_Comment [Automated 6690-2) message] The sy stem which generated this result transmitted reference range : 4.30 - 11.10 10*3/?L. The reference range was not used to interpret this result as normal/abnormal . RBC (test code = See_Comment [Automated 789-8) message] The sy stem which generated this result transmitted reference range : 3.93 - 5.25 10*6/?L. The reference range was not used to interpret this result as normal/abnormal . HGB (test code = 13.1 g/dL 11.6-15 718-7) HCT (test code = 38.1 % 35.7-45.2 4544-3) MCV (test code = 92.9 fL 80.6-95.5 787-2) MCH (test code = 32.0 pg 25.9-32.8 785-6) MCHC (test code = 34.4 g/dL 31.6-35.1 786-4) RDW-SD (test code = 43.7 fL 39-49.9 31488-2) RDW-CV (test code = 12.7 % 12-15.5 788-0) PLT (test code = See_Comment L [Automated 777-3) message] The sy stem which generated this result transmitted reference range : 166 - 358 10*3/ ?L. The reference r kendra was not used to interpret this result as normal/abnormal . MPV (test code = 10.5 fL 9.5-12.9 48969-3) NRBC/100 WBC (test See_Comment [Automat ed code = 7907408744) message] The system which generated this result transmitted reference range : 0.0 - 10.0 /100 WBCs. The refer ence range was not u sed to interpret th is result as normal/abnormal . NRBC x10^3 (test code <0.01 See_Comment [Auto mated = 2919671183) message] The s ystem which generated this result transmitted reference range : 10*3/?L. The reference range was not used to interpret this result as normal/abnormal . GRAN MAT (NEUT) % 63.3 % (test code = 770-8) IMM GRAN % (test code 0.10 % = 6553282070) LYMPH % (test code = 21.3 % 736-9) MONO % (test code = 10.4 % 5905-5) EOS % (test code = 4.3 % 713-8) BASO % (test code = 0.6 % 706-2) GRAN MAT x10^3(ANC) 4.27 10*3/uL 1.88-7.09 (test code = 1846119647) IMM GRAN x10^3 (test <0.03 0-0.06 code = 0147092570) LYMPH x10^3 (test code 1.44 10*3/uL 1.32-3.29 = 731-0) MONO x10^3 (test code 0.70 10*3/uL 0.33-0.92 = 742-7) EOS x10^3 (test code = 0.29 10*3/uL 0.03-0.39 711-2) BASO x10^3 (test code 0.04 10*3/uL 0.01-0.07 = 704-7) Lab Interpretation Abnormal (test code = 55539-0) [facility] [id number] 03:56:00COVID DMT InterpretationInterpretation/Recommendations:Molecular NAAT Tests for Active Infection with the SARS-CoV-2 Virus:This result indicates that the patient has tested negative for the SARS-CoV-2 virus that causes COVID-19 illness, subsequent to a positive test in the past which demonstrated active infection with the SARS-CoV-2 virus. Given the lapse in time, the patient has likely recovered from the infection, especially if any symptoms have resolved. If the patient now has symptoms concerningfor COVID-19 illness, a repeat NAAT test (PCR, Rapid ID Now, etc.) should be performed, at which time the SARS-CoV-2 virus - if present - may have reached a detectable viral load (usually peaking by the end of the first week of symptoms). Tests for IgM and/or IgG Antibodies to the SARS-CoV-2 Virus:Testing for IgM and IgG antibodies approximately 3 weeks after illness onset will likely indicate whether the patient has produced antibodies to the SARS-CoV-2 virus. However, some patients may take longerto develop detectable antibodies, while some patients who were infected with SARS-CoV-2 may never develop antibodies. While antibodies to SARS-CoV-2 may provide some degree of immunity, at this time the strength and duration of the antibody response is unknown. Interpretation Result Comments:These interpretation comments are based upon all COVID-19 testing the patient has had at [facility], including molecular NAAT testing (more commonly known as PCR testing and Rapid ID Now testing) and antibody testing. It does not take into account any testing that a patient has had outside of the [facility] medical record. [facility] LABORATORY SERVICESCOVID [id number]-[id number]-8 NAAT (no units) ? ? Date ? Value ? 06/07/2020 ? Not Detected ? ? ? 04/24/2020 ? Positive (A) ? ? ? 04/08/2020 ? NotDetected ? ? ? 03/21/2020 ? Not Detected ? ? ? 10/23/2019 ? Not Detected ? [facility] WOUND [id number] 15:22:00 Test Item Value Reference Range Interpretation Comments Wound Culture 1+ Bacillus species, not (test code = anthracis 6462-6) Gram stain (test Occasional (Rare) code = 664-3) Polymorphonuclear leukocytes [facility] Center[facility] Trough Level - Draw immediately prior to the NEXT dose, but, no more than 60 minutes before the NEXT dose. 2020-06-09 10:03:00 Test Item Value Reference Range Interpretation Comments VANCO TROUGH (test code 5.1 ug/mL 10-20 L = 5331954105) GIORGIO (test code = GIORGIO) Toxic Range: ?>20 ug/mL 15-20 ug/mL is recommended for severe infection or when Vancomycin FERDINAND is greater than or equal to 2. Lab Interpretation (test Abnormal code = 88794-1) [facility] [id number] 21:36:00 Test Item Value Reference Range Interpretation Comments FREE T4 (test code = See_Comment [Autom ated message] [id number]) The system XLerant generated this result transmitted ref erence range: 0.78 - 2 .20 ng/dL:. The ref erence range was not u sed to interpret this result as normal/abnor mal. Lab Interpretation (test Normal code = 14860-7) [facility] CenterTHYROID STIMULATING [id number] 20:38:00 Test Item Value Reference Range Interpretation Comments TSH (test code = See_Comment H [Automated message] [id number]) The system XLerant generated this result transmitted ref erence range: 0.45 - 4 .70 mIU/L. The refe rence range was not u sed to interpret this result as normal/abnor mal. Lab Interpretation (test Abnormal code = 03426-0) [facility] [id number] 20:38:00 Test Item Value Reference Range Interpretation Comments FREE T3 (test code = 0071324687) 4.32 pg/mL 2.77-5.27 Lab Interpretation (test code = Normal 11062-6) [facility] METABOLIC PANEL (NA, K, CL, CO2, GLUCOSE, BUN, CREATININE, CA)2020 11:31:00 Test Item Value Reference Range Interpretation Comments NA (test code = 135 mmol/L 135-145 5662865203) K (test code = 3.4 mmol/L 3.5-5 L 3649046020) CL (test code = 107 mmol/L 98-108 6325694734) CO2 TOTAL (test code = 25 mmol/L 23-31 4873476705) AGAP (test code = 2-16 8345169289) BUN (test code = 4 mg/dL 7-23 L 3365723315) GLUCOSE (test code = 116 mg/dL 70-110 H 3827644659) CREATININE (test code = 0.58 mg/dL 0.5-1.04 1079212973) CALCIUM (test code = 7.9 mg/dL 8.6-10.6 L 3358337319) eGFR Calculation mL/min/1.73m2 (Non-) (test code = 3899976252) eGFR Calculation mL/min/1.73m2 () (test code = 3814406028) GIORGIO (test code = GIORGIO) Association of Glomerular Filtration Rate (GFR) and Staging of Kidney Disease* + --+ --+ ------+| GFR (mL/min/1.73 m2) ?| With Kidney Damage ?| ?Without Kidney Damage+ --------+ --------+ +| ?>90 ?| ?Stage one ?| ? Normal ?+ ---+ ---+ -------+| ?60-89 ?| ?Stage two ?| ? Decreased GFR ? + --+ --+ ------+| ?30-59 ?| ?Stage three ?| ? Stage three ? + --+ --+ ------+| ?15-29 ?| ?Stage four ? | ? Stage four ?+ ---+ ---+ -------+| ?<15 (or dialysis) ? ?| ?Stage five ? | ? Stage five ?+ ---+ ---+ -------+ *Each stage assumes the associated GFR level has been in effect for at least three months. ?Stages 1 to 5, with or without kidney disease, indicate chronic kidney disease. Notes: Determination of stages one and two (with eGFR >59mL/min/1.73 m2) requires estimation of kidney damage for at least three months as defined by structural or functional abnormalities of the kidney, manifested by either:Pathological abnormalities or Markers of kidney damage (including abnormalities in the composition of the blood or urine or abnormalities in imaging tests). Lab Interpretation Abnormal (test code = 84229-2) [facility] WITH [id number] 11:14:00 Test Item Value Reference Range Interpretation Comments WBC (test code = See_Comment [Automated 3441-2) message] The sy stem which generated this result transmitted reference range : 4.30 - 11.10 10*3/?L. The reference range was not used to interpret this result as normal/abnormal . RBC (test code = See_Comment [Automated 407-8) message] The sy stem which generated this result transmitted reference range : 3.93 - 5.25 10*6/?L. The reference range was not used to interpret this result as normal/abnormal . HGB (test code = 12.8 g/dL 11.6-15 718-7) HCT (test code = 37.1 % 35.7-45.2 4544-3) MCV (test code = 93.7 fL 80.6-95.5 787-2) MCH (test code = 32.3 pg 25.9-32.8 785-6) MCHC (test code = 34.5 g/dL 31.6-35.1 786-4) RDW-SD (test code = 43.3 fL 39-49.9 60923-5) RDW-CV (test code = 12.6 % 12-15.5 788-0) PLT (test code = See_Comment L [Automated 777-3) message] The sy stem which generated this result transmitted reference range : 166 - 358 10*3/ ?L. The reference r kendra was not used to interpret this result as normal/abnormal . MPV (test code = 10.7 fL 9.5-12.9 96742-0) NRBC/100 WBC (test See_Comment [Automat ed code = 0577004666) message] The system which generated this result transmitted reference range : 0.0 - 10.0 /100 WBCs. The refer ence range was not u sed to interpret th is result as normal/abnormal . NRBC x10^3 (test code <0.01 See_Comment [Auto mated = 3419211769) message] The s ystem which generated this result transmitted reference range : 10*3/?L. The reference range was not used to interpret this result as normal/abnormal . GRAN MAT (NEUT) % 74.8 % (test code = 770-8) IMM GRAN % (test code 0.20 % = 0556943293) LYMPH % (test code = 13.2 % 736-9) MONO % (test code = 10.3 % 5905-5) EOS % (test code = 0.9 % 713-8) BASO % (test code = 0.6 % 706-2) GRAN MAT x10^3(ANC) 6.37 10*3/uL 1.88-7.09 (test code = 8261543939) IMM GRAN x10^3 (test <0.03 0-0.06 code = 8019399473) LYMPH x10^3 (test code 1.13 10*3/uL 1.32-3.29 L = 731-0) MONO x10^3 (test code 0.88 10*3/uL 0.33-0.92 = 742-7) EOS x10^3 (test code = 0.08 10*3/uL 0.03-0.39 711-2) BASO x10^3 (test code 0.05 10*3/uL 0.01-0.07 = 704-7) Lab Interpretation Abnormal (test code = 94734-5) [facility] CenterLactic Acid Whole [id number] 11:05:00 Test Item Value Reference Range Interpretation Comments LACTIC ACID (test code = 0.90 mmol/L 0.5-2.2 5830281118) Lab Interpretation (test code = Normal 48925-5) [facility] CenterCORONAVIRUS COVID-19 [id number] 01:44:00 Test Item Value Reference Range Interpretation Comments SARS-CoV-2 NAAT (test Not Detected Not Detected code = 82812-3) GIORGIO (test code = GIORGIO) [employer] SARS-CoV-2 Assay is a real-time RT-PCR test intended for the qualitative detection of RNA from SARS-CoV-2 from nasopharyngeal (CONSTRUCTION SERVICES TECHNICIAN) specimens. It is used under Emergency Use Authorization (EUA) by FDA. A positive result is indicative of the presence of SARS-CoV-2 RNA. ?Clinical correlation with patient history and other diagnostic information is necessary to determine patient infection status. A negative (Not Detected) result does not preclude SARS-CoV-2 infection. Clinical correlation with patient history and other diagnostic information should be used in patient management decisions. Invalid: Please collect a new specimen for repeat patient testing if clinically indicated. Lab Interpretation Normal (test code = 46163-5) [facility] CenterLactic Acid Whole [id number] 00:35:00 Test Item Value Reference Range Interpretation Comments LACTIC ACID (test code = 0.96 mmol/L 0.5-2.2 9736145938) Lab Interpretation (test code = Normal 60609-8) [facility] CenterABORH [id number] 23:02:37 Test Item Value Reference Range Interpretation Comments ABO & RH (test code A Positive Performe d at [facility] = 20) Laboratory Serv [facility] Blood Bank3 [address] [facility] [place] [address]Gcgq Free: [phone] A No. [id number] [facility] CenterXR FOOT 3+ VW [id number] 22:20:44 Bilateral forefoot soft tissue swelling with the radiopaque debris seenadjacent to the left and right great toe with gas/ulceration involving theright great toe soft tissues. No acute bony abnormalityis present. EXAM: XR HAND 3+ VW RIGHT, EXAM: XR WRIST 3+ VW RIGHT, EXAM: XR FOOT 3+ VW BILATERAL HISTORY: trauma COMPARISON: None FINDINGS: Imaging of the right hand and wrist demonstrates no erosions,subluxationsor fractures. Joint spaces are preserved. Images of the left and right foot demonstrate maintenance of alignment withpreservation of joint spaces. No fracture or dislocation is seen.A cornuatenavicular is noted bilaterally. ?Bipartite hallux sesamoid morphology isseen medially at the level of the right foot. There is soft tissue gas andswelling seen about the right great toe. Radiopaque debris is seen withinthe plantar soft tissues of the right great toe. Soft tissue swelling withradiopaque debris is also seen at the level of the left great toe. [facility], Radiant Results Inft User - 06/07/2020 4:21 PM CSTEXAM:XR HAND 3+ VW RIGHT,EXAM:XR WRIST 3+ VW RIGHT,EXAM:XR FOOT 3+ VW BILATERALHISTORY:trauma COMPARISON:NoneFINDINGS: Imaging of the right hand and wrist demonstrates no erosions, subluxationsor fractures. Joint spaces are preserved.Images of the left and right foot demonstrate maintenance of alignment withpreservation of joint spaces. No fracture or dislocation is seen.A cornuatenavicular is noted bilaterally. Bipartite hallux sesamoid morphology isseen medially at the level of the right foot. There is soft tissue gas andswelling seen about the right great toe. Radiopaque debris is seen withinthe plantar soft tissues of the right great toe. Soft tissue swelling withradiopaque debris is also seen at the level of the left great toe.IMPRESSIONBilateral forefoot soft tissue swelling with the radiopaque debris seenadjacent to the left and right great toe with gas/ulceration involving theright great toe soft tissues.No acute bony abnormality is present.[facility] XR WRIST 3+ VW [id number] 22:20:44 Bilateral forefoot soft tissue swelling with the radiopaque debris seenadjacent to the left and right great toe with gas/ulceration involving theright great toe soft tissues. No acute bony abnormalityis present. EXAM: XR HAND 3+ VW RIGHT, EXAM: XR WRIST 3+ VW RIGHT, EXAM: XR FOOT 3+ VW BILATERAL HISTORY: trauma COMPARISON: None FINDINGS: Imaging of the right hand and wrist demonstrates no erosions,subluxationsor fractures. Joint spaces are preserved. Images of the left and right foot demonstrate m aintenance of alignment withpreservation of joint spaces. No fracture or dislocation is seen.A cornuatenavicular is noted bilaterally. ?Bipartite hallux sesamoid morphology isseen medially at the levelof the right foot. There is soft tissue gas andswelling seen about the right great toe. Radiopaque debris is seen withinthe plantar soft tissues of the right great toe. Soft tissue swelling withradiopaque debris is also seen at the level of the left great toe. [facility], Radiant Results Inft User - 06/07/2020 4:21 PM CSTEXAM:XR HAND 3+ VW RIGHT,EXAM:XR WRIST 3+ VW RIGHT,EXAM:XR FOOT 3+ VW BILATERALHISTORY:trauma COMPARISON:NoneFINDINGS: Imaging of the right hand and wrist demonstrates no erosions, subluxationsor fractures. Joint spaces are preserved.Images of the left and right foot demonstrate maintenance of alignment withpreservation of joint spaces. No fracture or dislocation is seen.A cornuatenavicular is noted bilaterally. Bipartite hallux sesamoid morphology isseen medially at the level of the right foot. There is soft tissue gas andswelling seen about the right great toe. Radiopaque debris is seen withinthe plantar soft tissues of the right great toe. Soft tissue swelling withradiopaque debris is also seen at the level of the left great toe.IMPRESSIONBilateral forefoot soft tissue swelling with the radiopaque debris seenadjacent to the left and right great toe with gas/ulceration involving theright great toe soft tissues.No acute bony abnormality is present.[facility] CenterXR HAND 3+ VW RIGHT 2020-06-07 22:20:44 Bilateral forefoot soft tissue swelling with the radiopaque debris seenadjacent to the left and right great toe with gas/ulceration involving theright great toe soft tissues. No acute bony abnormalityis present. EXAM: XR HAND 3+ VW RIGHT, EXAM: XR WRIST 3+ VW RIGHT, EXAM: XR FOOT 3+ VW BILATERAL HISTORY: trauma COMPARISON: None FINDINGS: Imaging of the right hand and wrist demonstrates no erosions,subluxationsor fractures. Joint spaces are preserved. Images of the left and right foot demonstrate maintenance of alignment withpreservation of joint spaces. No fracture or dislocation is seen.A cornuatenavicular is noted bilaterally. ?Bipartite hallux sesamoid morphology isseen medially at the levelof the right foot. There is soft tissue gas andswelling seen about the right great toe. Radiopaque debris is seen withinthe plantar soft tissues of the right great toe. Soft tissue swelling withradiopaque debris is also seen at the level of the left great toe. [facility], Radiant Results Inft User - 06/07/2020 4:21 PM CSTEXAM:XR HAND 3+ VW RIGHT,EXAM:XR WRIST 3+ VW RIGHT,EXAM:XR FOOT 3+ VW BILATERALHISTORY:trauma COMPARISON:NoneFINDINGS: Imaging of the right hand and wrist demonstrates no erosions, subluxationsor fractures. Joint spaces are preserved.Images of the left and right foot demonstrate maintenance of alignment withpreservation of joint spaces. No fracture or dislocation is seen.A cornuatenavicular is noted bilaterally. Bipartite hallux sesamoid morphology isseen medially at the level of the right foot. There is soft tissue gas andswelling seen about the right great toe. Radiopaque debris is seen withinthe plantar soft tissues of the right great toe. Soft tissue swelling withradiopaque debris is also seen at the level of the left great toe.IMPRESSIONBilateral forefoot soft tissue swelling with the radiopaque debris seenadjacent to the left and right great toe with gas/ulceration involving theright great toe soft tissues.No acute bony abnormality is present. [facility] CenterType and Screen - The Type and Screen expires at midnight on the 3rd day after it was drawn. A current Type and Screen is required when RBCs are requested. For all other blood products, a Type and Scree n performed during the current hospitalizati...2020-06-07 21:52:32 Test Item Value Reference Range Interpretation Comments ABO & RH (test code A POSITIVE Performe d at [facility] = 20) Laboratory Serv [facility] Blood Bank3 [address] [facility] [address]Wwxd Free: [phone] A No. [id number] IAT (test code = Negative Performed a t [facility] 1185) Laboratory Serv [facility] Blood Bank3 [address] [facility] [address]Kqds Free: [phone] A No. [id number] [facility] CenterPREGNANCY TEST, [id number] 20:30:00 Test Item Value Reference Range Interpretation Comments PREG SERUM (test code Negative = 9942108062) GIORGIO (test code = GIORGIO) Less than 10 IU/L. ?If low titer or ectopic is suspected, resubmit specimen in 48-72 hours. [facility] CenterBauofl [facility] Met[facility] Panel (NA, K, CL, CO2, GLUCOSE, BU, CREATININE, CA)2020-06-07 20:29:00 Test Item Value Reference Range Interpretation Comments NA (test code = 138 mmol/L 135-145 8511810055) K (test code = 4.1 mmol/L 3.5-5 5160630721) CL (test code = 109 mmol/L 98-108 H 6725165529) CO2 TOTAL (test code = 19 mmol/L 23-31 L 8185058047) AGAP (test code = 2-16 5495243536) BUN (test code = 3 mg/dL 7-23 L 9412039141) GLUCOSE (test code = 79 mg/dL 70-110 9343624679) CREATININE (test code = 0.58 mg/dL 0.5-1.04 6621952892) CALCIUM (test code = 8.0 mg/dL 8.6-10.6 L 3454409753) eGFR Calculation mL/min/1.73m2 (Non-) (test code = 8606519959) eGFR Calculation mL/min/1.73m2 () (test code = 7300481517) GIORGIO (test code = GIORGIO) Association of Glomerular Filtration Rate (GFR) and Staging of Kidney Disease* + --+ --+ ------+| GFR (mL/min/1.73 m2) ?| With Kidney Damage ?| ?Without Kidney Damage+ --------+ --------+ +| ?>90 ?| ?Stage one ?| ? Normal ?+ ---+ ---+ -------+| ?60-89 ?| ?Stage two ?| ? Decreased GFR ? + --+ --+ ------+| ?30-59 ?| ?Stage three ?| ? Stage three ? + --+ --+ ------+| ?15-29 ?| ?Stage four ? | ? Stage four ?+ ---+ ---+ -------+| ?<15 (or dialysis) ? ?| ?Stage five ? | ? Stage five ?+ ---+ ---+ -------+ *Each stage assumes the associated GFR level has been in effect for at least three months. ?Stages 1 to 5, with or without kidney disease, indicate chronic kidney disease. Notes: Determination of stages one and two (with eGFR >59mL/min/1.73 m2) requires estimation of kidney damage for at least three months as defined by structural or functional abnormalities of the kidney, manifested by either:Pathological abnormalities or Markers of kidney damage (including abnormalities in the composition of the blood or urine or abnormalities in imaging tests). Lab Interpretation Abnormal (test code = 29186-1) [facility] CenterMagnesium, [id number] 20:29:00 Test Item Value Reference Range Interpretation Comments MAGNESIUM (test code = 5292070952) 1.7 mg/dL 1.7-2.4 Lab Interpretation (test code = Normal 69046-6) [facility] CenterPhosphorus, [id number] 20:29:00 Test Item Value Reference Range Interpretation Comments PHOSPHORUS (test code = 6993336753) 3.5 mg/dL 2.5-5 Lab Interpretation (test code = Normal 81490-8) [facility] CenterHEPATIC FUNCTION PANEL (89132) (ALB,T.PRO,BILI T,BU/BC,ALT,AST,ALK PHOS)2020-06-07 20:29:00 Test Item Value Reference Range Interpretation Comments TOTAL BILI (test code = 1551396295) 0.6 mg/dL 0.1-1.1 BILI UNCON (test code = 4969679886) 0.4 mg/dL 0.1-1.1 BILI CONJ (test code = 7328757597) 0.0 mg/dL 0-0.3 T PROTEIN (test code = 8364678890) 6.3 g/dL 6.3-8.2 ALBUMIN (test code = 8919057511) 3.4 g/dL 3.5-5 L ALK PHOS (test code = 6500902658) 76 U/L 34-122 ALTv (test code = 1742-6) 62 U/L 5-35 H AST(SGOT) (test code = 9151899379) 94 U/L 13-40 H Lab Interpretation (test code = Abnormal 18938-9) [facility] CenterIonized [id number] 20:19:00 Test Item Value Reference Range Interpretation Comments IONIZED CA (test code = 4.20 mg/dL 4.5-5.3 L 5956955569) PH SERUM (test code = 8038412010) 7.35-7.45 Lab Interpretation (test code = Abnormal 07951-8) [facility] CenterLactic Acid Whole [id number] 20:00:00 Test Item Value Reference Range Interpretation Comments LACTIC ACID (test code = 2.64 mmol/L 0.5-2.2 H 7838507795) Lab Interpretation (test code = Abnormal 22104-5) [facility] CenteraPTT2021-02-20 19:57:00 Test Item Value Reference Range Interpretation Comments APTT Patient (test code = See_Comment [ Automated message] 0103-2) The system [employer] generated this result transmitted ref erence range: 26 - 36 Seconds. The re ference range was not u sed to interpret this result as normal/abnor mal. Lab Interpretation (test Normal code = 81656-9) [facility] CenterCB with [id number] 19:51:00 Test Item Value Reference Range Interpretation Comments WBC (test code = See_Comment H [Automated 7690-2) message] The system which generated this result transmit liz reference range : 4.30 - 11.10 10*3/?L. The reference range was not used to interpret this result as normal/abnormal . RBC (test code = See_Comment [Automated 789-8) message] The system which generated this result transmit liz reference range : 3.93 - 5.25 10*6/?L. The reference range was not used to interpret this result as normal/abnormal . HGB (test code = 13.7 g/dL 11.6-15 718-7) HCT (test code = 40.0 % 35.7-45.2 4544-3) MCV (test code = 92.6 fL 80.6-95.5 787-2) MCH (test code = 31.7 pg 25.9-32.8 785-6) MCHC (test code = 34.3 g/dL 31.6-35.1 786-4) RDW-SD (test code = 42.5 fL 39-49.9 50318-1) RDW-CV (test code = 12.5 % 12-15.5 788-0) PLT (test code = See_Comment [Automated 777-3) message] The system which generated this result transmit liz reference range : 166 - 358 10*3/ ?L. The reference range was not u sed to interpret th is result as normal/abnormal . MPV (test code = 10.9 fL 9.5-12.9 47633-3) NRBC/100 WBC (test See_Comment [Automat ed code = 9819939348) message] The system which generated this result transmit liz reference range : 0.0 - 10.0 /100 WBCs. The reference range was not used to interpret this result as normal/abnormal . NRBC x10^3 (test code <0.01 See_Comment [Auto mated = 2107946684) message] The system which generated this result transmit liz reference range : 10*3/?L. The reference range was not used to interpret this result as normal/abnormal . GRAN MAT (NEUT) % 78.4 % (test code = 770-8) IMM GRAN % (test code 0.30 % = 2901150860) LYMPH % (test code = 14.5 % 736-9) MONO % (test code = 6.5 % 5905-5) EOS % (test code = 0.1 % 713-8) BASO % (test code = 0.2 % 706-2) GRAN MAT x10^3(ANC) 10.42 10*3/uL 1.88-7.09 H (test code = 0096961808) IMM GRAN x10^3 (test 0.04 10*3/uL 0-0.06 code = 0006435736) LYMPH x10^3 (test code 1.92 10*3/uL 1.32-3.29 = 731-0) MONO x10^3 (test code 0.86 10*3/uL 0.33-0.92 = 742-7) EOS x10^3 (test code = <0.03 0.03-0.39 L 711-2) BASO x10^3 (test code 0.03 10*3/uL 0.01-0.07 = 704-7) Lab Interpretation Abnormal (test code = 75344-1) [facility]-CoV-2 (COVID-19) Ag [Presence] in Respiratory specimen by Rapid [id number] 16:35:00 Test Item Value Reference Range Interpretation Comments SARS CoV 2 (test code = SARS CoV 2) negative [facility]-CoV-2 (COVID-19) Ag [Presence] in Respiratory specimen by Rapid [id number] 16:35:00 Test Item Value Reference Range Interpretation Comments SARS CoV 2 (test code = SARS CoV 2) negative [facility] OB [id number] 16:16:20 Transvaginal USG showed echogenic materials noted in the uterus measured 0.83 cm and a small amount of material in the endocervical canal that can be blood clots or retained products of conception. Fahad Asencio MD ?09/03/2019 ?11:16 AM [facility] OB [id number] 15:49:38No gestational sac or pole with echogenic materials measuring 1.25 cm noted on transvaginal USG today Fahad Asencio MD ?08/30/2019 ?10:49 [facility] TRIMESTER LESS THAN 14 WEEKS WITH [id number] 20:44:16HISTORY: Vaginal bleeding. TECHNIQUE: Both transabdominal and transvaginal pelvic ultrasound studieswere completed by the technologist. FINDINGS: Uterus is slightly enlarged, measures approximately 9.3x 4.5 x5.8 cm in size and contains a single intrauterine ofapproximately 5 weeks and 6 days size by mean sac diameter of 9.6 mm andCRL measurement of 4.26 mm. However, gestational sac appearsdeformed andthere is a small subchorionic hemorrhage near the upper surface of thegestational sac. Pappas bchorionic hemorrhage is approximately 15 x 11 x 3 mm.No cardiac activity is confirmed. Small nabothian cysts are seen in the cervix, the largest is 7 mm . Right ovary is 4.5 x 2.5 x 1.5 cm (9.38ml) and left ovary is 2.4 x 2.8 x1.0 cm (3.82 ml). Multiple cysts are present in the right ovary, largest isovoid shaped 24 x 12 mm and there is a small amount of fluid surroundingthe lower edge of theright ovary. Subcentimeter follicles are present inthe left ovary. CONCLUSIONS: demise. SingleIUP noted with deformed gestational sac,small pole without cardiac activity and small amount of subchorionichemorrhage. [facility], Radiant Results Inft User - 08/28/2019 3:45 PM CDTHISTORY: Vaginal ble eding.TECHNIQUE: Both transabdominal and transvaginal pelvic ultrasound studieswere completed by thetechnologist.FINDINGS: Uterus is slightly enlarged, measures approximately 9.3 x 4.5 x5.8 cm in sizeand contains a single intrauterine ofapproximately 5 weeks and 6 days size by mean sac diam eter of 9.6 mm andCRL measurement of 4.26 mm. However, gestational sac appears deformed andthere is a small subchorionic hemorrhage near the upper surface of thegestational sac. Subchorionic hemorrhageis approximately 15 x 11 x 3 mm.No cardiac activity is confirmed.Small nabothian cysts are seen in the cervix, the largest is 7 mm . Right ovary is 4.5 x 2.5 x 1.5 cm (9.38 ml) and left ovary is 2.4 x 2.8 x1.0 cm (3.82 ml). Multiple cysts are present in the right ovary, largest isovoid shaped 24x 12 mm and there is a small amount of fluid surroundingthe lower edge of the right ovary. Subcentimeter follicles are present inthe left ovary.CONCLUSIONS: demise. Single IUP noted with deformedgestational sac,small pole without cardiac activity and small amount of subchorionichemorrhage.[facility]"
[2023-02-04 03:26] LABS: Hematocrit 39.7 % (36.0-45.0); Lymphocytes % 17.5 % (15.3-44.8); MCV 88.4 fL (80-100); MPV 8.6 fL (7.6-11.3); Platelets 223 thou/uL (152-406); RBC Red Blood Cell Count 4.49 M/uL (3.86-4.86)
[2023-02-04 03:30] LABS: Specific Gravity 1.024 (1.005-1.030)
[2023-02-04] MEDS ORDERED: ONDANSETRON 4 MG/2 ML VIAL ONE (03:31)
[2023-02-04] MEDS ORDERED: NA CHLORIDE 0.9% 1,000 ML ONE (03:31)
[2023-02-04] MEDS ORDERED: MORPHINE 4 MG/ML SYR ONE (03:31)
[2023-02-04 03:40] LABS: Specific Gravity 1.024 (1.005-1.030); Urine Bacteria <20 /HPF (<20); Urine Bilirubin NEGATIVE (Negative); Urine Blood Negative (Negative); Urine Clarity Extremely Turbid (Clear); Urine Color Light-Yellow (Yellow); Urine Glucose NEGATIVE (Negative); Urine Protein TRACE (Negative); Urine RBC None Seen /HPF (None Seen); Urine Urobilinogen Normal (Normal); Urine pH 6.5 (5.0-7.0)
[2023-02-04 03:42] LABS: Albumin 3.1 g/dL (3.4-5.0); Bilirubin Total 0.3 mg/dL (0.2-1.0); Potassium 3.6 mEq/L (3.5-5.1); Protein, Total 7.1 g/dL (6.4-8.2)
--- NOTE | 2023-02-04 04:22 | ER ---
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 Coronavirus screen: Vaccine status: Patient reports receiving the 2nd dose of the covid vaccine. Ebola Screen: Patient negative for fever greater than or equal to 101.5 degrees Fahrenheit, and additional compatible Ebola Virus Disease symptoms. Initial Sepsis Screen: Does the patient meet any 2 criteria? No. Patient's initial sepsis screen is negative. Does the patient have a suspected source of infection? No. Patient's initial sepsis screen is negative. Risk Assessment: Do you want to hurt yourself or someone else? Patient reports no desire to harm self or others. Onset of symptoms was February 04, 2023 at 00:30. 02:46 Method Of Arrival: Ambulatory 02:46 Acuity: [place] 3 kl Triage Assessment: 02:49 General: Appears uncomfortable, Behavior is calm, cooperative. Pain: Complains of pain kl in right upper quadrant Pain currently is 9 out of 10 on a pain scale. Quality of pain is described as aching, Noted to be grimacing. EENT: No deficits noted. Neuro: No deficits noted. Cardiovascular: No deficits noted. Respiratory: No deficits noted. Airway is patent Trachea midline Respiratory effort is even, unlabored, Respiratory pattern is regular, symmetrical. GI: Reports lower abdominal pain, bloating, constipation, nausea. : No deficits noted. No signs and/or symptoms were reported regarding the genitourinary system. Derm: No deficits noted. No signs and/or symptoms reported regarding the dermatologic system. Musculoskeletal: No deficits noted. No signs and/or symptoms reported regarding the musculoskeletal system. Historical: - Allergies: 02:48 No Known Allergies; kl - Home Meds: 02:48 labetalol Oral [Active]; kl - PMHx: 02:48 Hypertensive disorder; kl - PSHx: 02:48 section; kl - Immunization history:: Adult Immunizations not up to date. - Social history:: Smoking status: Patient reports the use of cigarette tobacco products, smokes one-half pack cigarettes per day. Screenin:55 [facility] ED Fall Risk Assessment (Adult) History of falling in the last 3 months, bp including since admission No falls in past 3 months (0 pts). Abuse screen: Denies threats or abuse. Denies injuries from another. Nutritional screening: No deficits noted. Tuberculosis screening: No symptoms or risk factors identified. Assessment: 02:50 General: SEE TRIAGE NOTE. bp 03:55 Reassessment: Patient appears in no apparent distress at this time. Patient is alert, bp oriented x 3, equal unlabored respirations, skin warm/dry/pink. Vital Signs: 02:46 BP 154 / 88; Pulse 70; Resp 16; Temp 98.1(O); Pulse Ox 100% ; Weight 106.14 kg (M); kl Height 5 ft. 4 in. ; Pain 9/10; 03:54 BP 161 / 103; Pulse 82; Resp 14; Pulse Ox 95% ; bp 04:00 BP 140 / 97; Pulse 81; Resp 16 S; Pulse Ox 97% on R/A; km8 02:46 Body Mass Index 40.17 (106.14 kg, 162.56 cm) kl 02:46 Pain Scale: Adult kl ED Course: 02:35 Patient arrived in ED. ag3 02:36 Filemon Harvey MD is Attending Physician. ec2 02:45 Inserted saline lock: 22 gauge in right antecubital area, using aseptic technique. bp Blood collected. 02:48 Triage completed. kl 03:25 US Abdomen Limited In Process Unspecified. EDMS 03:27 Jamel Campbell, STARLA is Primary Nurse. bp 03:55 Patient has correct armband on for positive identification. Bed in low position. Call bp light in reach. Side rails up X2. 04:22 Derek Smith MD is Referral Physician. ec2 04:36 No provider procedures requiring assistance completed. IV discontinued, intact, bp bleeding controlled, No redness/swelling at site. Pressure dressing applied. Administered Medications: 03:10 Drug: NS 0.9% IV 1000 ml IV at 1 bolus Per protocol; 1000 mL bolus Route: IV; Rate: 1 bp bolus; Site: right antecubital; 04:38 Follow up: IV Status: Completed infusion; IV Intake: 1000ml bp 03:10 Drug: Ondansetron IVP 4 mg IVP once; over 2 minutes Route: IVP; Site: right antecubital;bp 04:38 Follow up: Response: No adverse reaction bp 03:10 Drug: morphine IVP or IV 4 mg IVP once over 4 mins Route: IVP; Infused Over: 4 mins; bp Site: right antecubital; 04:38 Follow up: Response: No adverse reaction bp Intake: 04:38 IV: 1000ml; Total: 1000ml. bp Outcome: 04:21 Discharge ordered by MD. boyce 04:36 Discharged to home ambulatory, bp 04:36 Condition: stable 04:36 Discharge instructions given to patient, Instructed on discharge instructions, follow up and referral plans. Demonstrated understanding of instructions, follow-up care, 04:39 Patient left the ED. bp Signatures: Dispatcher [employer] Maria Luz Louis RN Jamel Forman RN RN bp Gomez, Alice ag3 Filemon Harvey MD MD ec2 Marx, Katie, RN RN km8
--- NOTE | 2023-02-04 04:22 | EDPHYS ---
Physician Documentation [facility] Name: Valeria Sullivan Age: 42 yrs Sex: Female : 1980 Arrival Date: 02/04/2023 Time: 02:26 Bed 6 Private MD: ED Physician Filemon Harvey HPI: 02/04 02:47 This 42 yrs old Female presents to ER via Unassigned with complaints of ec2 Abdominal Pain. 02:47 Patient arrives today due to concern for epigastric/right upper quadrant abdominal ec2 pain. Patient reports that she had eaten some beans for dinner and subsequently had pain in the right upper quadrant approximately 45 minutes after this. Patient reports associated nausea without vomiting. Patient reports previous abdominal surgeries including x4. Patient reports no urinary problems, no flank pain. Patient reports no fevers or chills.. Historical: - Allergies: 02:48 No Known Allergies; kl - Home Meds: 02:48 labetalol Oral [Active]; kl - PMHx: 02:48 Hypertensive disorder; kl - PSHx: 02:48 section; kl - Immunization history:: Adult Immunizations not up to date. - Social history:: Smoking status: Patient reports the use of cigarette tobacco products, smokes one-half pack cigarettes per day. ROS: 02:47 Constitutional: abd pain ec2 Exam: 02:47 Constitutional: GEN: NAD Head: atraumatic Eyes: EOMI Ears: External ears are ec2 normal. CV: regular rate LUNGS: no respiratory distress ABD: non-distended, soft, no guarding, not rigid, tender in epigastrium and right upper quadrant. SKIN: no evidence of rashes MSK: no evidence of trauma NEURO: moves all extremities equally Vital Signs: 02:46 BP 154 / 88; Pulse 70; Resp 16; Temp 98.1(O); Pulse Ox 100% ; Weight 106.14 kg (M); kl Height 5 ft. 4 in. ; Pain 9/10; 03:54 BP 161 / 103; Pulse 82; Resp 14; Pulse Ox 95% ; bp 04:00 BP 140 / 97; Pulse 81; Resp 16 S; Pulse Ox 97% on R/A; km8 02:46 Body Mass Index 40.17 (106.14 kg, 162.56 cm) 02:46 Pain Scale: Adult kl MDM: 02:36 Patient medically screened. ec2 02:47 ED course: Patient arrives today due to concern for epigastric/right upper quadrant ec2 abdominal pain. Examination remarkable for abdominal findings as noted above. Will obtain lab work, urine studies as well as ultrasonography of the right upper quadrant. Currently considering processes gallstones, cholecystitis, urinary tract infection, lower suspicion for process such as appendicitis or pancreatitis. We will give the patient IV morphine for pain control as well as antiemetic and crystalloid.. 04:00 ED course: CBC is remarkable for reassuring blood counts, metabolic profile shows ec2 appropriate electrolytes and renal function, within normal ranges liver profile. UA is noninfectious appearing, does have no blood present. Lipase is within normal ranges. Urine negative. . 04:03 ED course: On reassessment patient with marked improvement in her symptoms. Pending ec2 ultrasound.. 04:21 ED course: Ultrasound shows cholelithiasis without evidence of infection. On ec2 reassessment patient with marked improvement in her symptoms. I discussed anticipatory guidance, return precautions given. Referral to general surgery given.. 04:23 Data reviewed: vital signs. ec2 02/04 02:46 Order name: CBC with Diff; Complete Time: 03:58 ec2 02/04 02:46 Order name: CMP; Complete Time: 03:58 ec2 02/04 02:46 Order name: Lipase; Complete Time: 03:58 ec2 02/04 02:46 Order name: Test, Urine; Complete Time: 03:58 ec2 02/04 02:46 Order name: Urinalysis w/ reflexes; Complete Time: 03:58 ec2 02/04 02:46 Order name: US Abdomen Limited ec2 02/04 02:46 Order name: IV Saline Lock; Complete Time: 03:08 ec2 02/04 02:46 Order name: Labs collected and sent; Complete Time: 03:08 ec2 Administered Medications: 03:10 Drug: NS 0.9% IV 1000 ml IV at 1 bolus Per protocol; 1000 mL bolus Route: IV; Rate: 1 bp bolus; Site: right antecubital; 04:38 Follow up: IV Status: Completed infusion; IV Intake: 1000ml bp 03:10 Drug: Ondansetron IVP 4 mg IVP once; over 2 minutes Route: IVP; Site: right antecubital;bp 04:38 Follow up: Response: No adverse reaction bp 03:10 Drug: morphine IVP or IV 4 mg IVP once over 4 mins Route: IVP; Infused Over: 4 mins; bp Site: right antecubital; 04:38 Follow up: Response: No adverse reaction bp Disposition Summary: 02/04/23 04:21 Discharge Ordered Notes: Location: Home ec2 Condition: Stable ec2 Diagnosis - Gallstones ec2 Followup: ec2 - With: Derek Smith MD - When: - Reason: Continuance of care Discharge Instructions: - Discharge Summary Sheet ec2 - Cholelithiasis, [id number] ec2 Forms: - Medication Reconciliation Form ec2 - Thank You Letter ec2 - Antibiotic Education ec2 - Prescription Opioid Use ec2 - Patient Portal Instructions ec2 - Leadership Thank You Letter ec2 Signatures: Dispatcher [employer] Maria Luz Louis RN RN kl Peltier, Brian, RN RN bp Corral, Edwin, MD MD ec2 Corrections: (The following items were deleted from the chart) 03:57 03:31 Manual Differential ordered. TYSON MEHTA
[2023-02-04 04:46] VITALS: TEMP 98.1
[2023-02-04 04:48] VITALS: BP 140/97; O2SAT 97
--- NOTE | 2023-02-04 18:06 | RAD REPORT ---
EXAM DESCRIPTION: US - Abdomen Exam Limited - 02/04/2023 3:24 am CLINICAL HISTORY: The patient is 42 years old and is Female; ruq abd pain;Abd pain TECHNIQUE: Real-time ultrasound of the right upper quadrant with image documentation. COMPARISON: No relevant prior studies available. FINDINGS: Liver: Visualized liver is normal. Gallbladder: Cholelithiasis. No gallbladder wall thickening. No pericholecystic fluid. Gallbladder wall measures 2.8 mm in thickness. Common bile duct: Common bile duct is normal. IMPRESSION: Cholelithiasis. No gallbladder wall thickening. No pericholecystic fluid. Electronically signed by: Guicho Malone MD 02/04/2023 4:16 AM CDT Due to temporary technical issues with the PACS/Fluency reporting system, reports are being signed by the in house radiologists without review as a courtesy to insure prompt reporting. The interpreting radiologist is fully responsible for the content of the report.
== END 2023-02-04 04:39 | disposition home or self-care (01) ==
LOC: ER 02:26
DX: K80.20 Calculus of gallbladder without cholecystitis without obstruction (principal); I10 Essential (primary) hypertension; F17.210 Nicotine dependence, cigarettes, uncomplicated
CPT/HCPCS: 96361; 85025; 81001; 36415; 81025; 83690; 80053; 76705; 96375; 96374; 99284; J2405; J7030

== ENCOUNTER 2023-02-14 08:48 | Day surgery (SDC) | payer OTHER ==
--- NOTE | 2023-02-11 13:25 | RAD REPORT ---
EXAM DESCRIPTION: Jorge Luis Barakat (2 Views)02/11/2023 1:16 pm CLINICAL HISTORY: Preop for cholecystectomy. Hypertension COMPARISON: 2017 FINDINGS: Lungs are mildly hyperaerated. The lungs appear clear of acute infiltrate. The heart is normal size IMPRESSION: No acute abnormalities displayed
[2023-02-11 13:41] LABS: Albumin 3.1 g/dL (3.4-5.0); Bilirubin Direct 0.1 mg/dL (0-0.2); Bilirubin Indirect, Calculated 0.4 mg/dL (0.2-0.8); Bilirubin Total 0.5 mg/dL (0.2-1.0); Protein, Total 7.1 g/dL (6.4-8.2)
--- NOTE | 2023-02-11 15:41 | EKG ---
Test Date: 2023-02-11 Test Time: 12:45:30 Human Resources Department Supervisor: DONNA MEASUREMENT RESULTS: Intervals: Rate: 76 ME: 162 QRSD: 98 QT: 370 QTc: 416 Rhine: P: 61 ME: 162 QRS: 61 T: 29 INTERPRETIVE STATEMENTS: Normal sinus rhythm with sinus arrhythmia Normal ECG No previous ECG available for comparison Electronically Signed On 02-11-23 15:40:05 CDT by Andrew Nettles
[2023-02-14] MEDS ORDERED: ROCURONIUM 50 MG/5 ML VIAL IV ONE (09:29)
[2023-02-14] MEDS ORDERED: MIDAZOLAM HCL 2 MG/2 ML INJ ONE (09:29)
[2023-02-14] MEDS ORDERED: FENTANYL CITR 100 MCG/2 ML ONE (09:29)
[2023-02-14] MEDS ORDERED: LIDOCAINE 2% MPF 5 ML VIAL ONE (09:29)
[2023-02-14] MEDS ORDERED: propofoL 200 MG/20 ML VIAL IV ONE (09:29)
[2023-02-14] MEDS ORDERED: Ringers Lactate 1,000 ML IV ONE (09:38)
[2023-02-14] MEDS ORDERED: HYDROMORPHONE HCL 2 MG/ML inj ONE (09:38)
[2023-02-14] MEDS ORDERED: CEFOXITIN SODIUM 1 GM/VIAL ONE (09:38)
[2023-02-14] MEDS ORDERED: dexAMETHasone 10 MG/ML VIAL ONE (10:25)
[2023-02-14] MEDS ORDERED: ONDANSETRON 4 MG/2 ML VIAL ONE (10:25)
[2023-02-14] MEDS ORDERED: GLYCOPYRROLATE 0.2 MG/ML SYR ONE ×3 (10:36→10:51)
[2023-02-14] MEDS ORDERED: EPHEDRINE SULF 50 MG/ML VIAL ONE (10:38)
--- NOTE | 2023-02-14 10:39 | P.BOP ---
Preoperative diagnosis: symptomatic cholelithiasis Postoperative diagnosis: same Primary procedure: Laparoscopic cholecystectomy Satellite Specialist: Tisha Bland (Archana) Estimated blood loss: <10cc Specimen: gb Findings: as above Anesthesia: General Complications: None Transferred to: Recovery Room Condition: Good
[2023-02-14] MEDS ORDERED: NEOSTIGMINE 1 MG/ML -10 ML VIAL ONE (10:50)
[2023-02-14] MEDS ORDERED: KETOROLAC 30 MG/ML INJ ONE (10:51)
[2023-02-14 12:33] VITALS: BP 99/56; TEMP 96.4; O2SAT 98
--- NOTE | 2023-02-14 14:32 | OP ---
Date of Procedure: 02/14/2023 Surgeon: Jeferson Ochoa MD Preoperative Diagnosis: Symptomatic cholelithiasis. Postoperative Diagnosis: Symptomatic cholelithiasis. Procedure: Laparoscopic cholecystectomy. Estimated Blood Loss: Less than 10 cc. Specimen: Gallbladder. Anesthesia: General plus local. Complications: None. Indication: This is a case of a 42-year-old patient who comes to us with above diagnosis. Fully exp lained the benefits, alternatives, and risks of laparoscopic possible open cholecystectomy which incl ude, but not limited to, infection, bleeding, damage to adjacent structures, anesthesia complication, choledocholithiasis, bile leak, pancreatitis, OR, and even . She also understands this may not relieve any symptoms. She might need more than one surgical intervention. She understood, signed t he consent. Description Of Procedure: Patient was brought to the operating room, placed in supine position. Ane sthesia was done without complication. Abdominal area was prepped and draped in usual sterile fashio n. Marcaine 0.5% injected with local anesthetic followed by sharp incision of the skin in the infrau mbilical region. Incision was carried down to fascia, which was opened under direct vision. Periton eum was encountered, opened under direct vision. Vicryl #1 placed inside the fascia. Emeli trocar was carefully introduced. Pneumoperitoneum was obtained. I placed three more trocars, 5 mm each one of them, one in epigastric, two in the right upper quadrant area under direct visualization. This a llowed me to put a grasper in the fundus of the gallbladder, another grasper in the infundibulum, ret racting the gallbladder in the inferolateral fashion exposing the triangle of Calot, obtaining critic al view. Cystic duct and cystic artery were clearly isolated, freed circumferentially and a connecti on between those and the gallbladder were clearly identified. I proceeded to ligate those by using a t least 3 clips proximal, 1 clip distal, ligation in the middle. Same was done with the cystic arter y. No bile leak. No bleeding. The gallbladder was removed from liver using Bovie cauterizer and re moved from the abdominal cavity using EndoCatch through the umbilical incision. The area was inspect ed once again. No bile leak. No bleeding. At that moment, I proceeded to remove the trocars under direct vision, deflated pneumoperitoneum, closed the fascia with #1 Vicryl, irrigated subcutaneous ti ssue, closed that with 3-0 chromic and the skin with 3-0 chromic in a subcuticular fashion and Steri- Strips on top. Sponge count and instrument counts were correct. Patient tolerated the procedure wel l. Patient was sent to Recovery in stable condition. JACIEL/EDOUARD Voice ID: [id number] Report ID: [id number]
--- NOTE | 2023-02-14 14:38 | DS ---
Date of Discharge: 02/14/2023 Diagnosis: Symptomatic cholelithiasis. Procedure: Laparoscopic cholecystectomy. Condition: Stable. Disposition: Home. Activity: As tolerated. No heavy lifting. Plan: Follow up in my office in 1 week. Call for appointment [phone]. Keep area dry for 48 hours, then may shower. Keep Steri-Strip intact. JACIEL/EDOUARD Voice ID: [id number] Report ID: [id number]
== END 2023-02-14 12:28 | disposition home or self-care (01) ==
LOC: OR 08:48
PROVIDERS: ATTEND Surgery
PROC: 0FT44ZZ Resection of Gallbladder, Percutaneous Endoscopic Approach (ICD-10-PCS; principal; 2023-02-14 10:30)
DX: K80.10 Calculus of gallbladder with chronic cholecystitis without obstruction (principal); F17.210 Nicotine dependence, cigarettes, uncomplicated; E66.9 Obesity, unspecified; Z68.39 Body mass index [BMI] 39.0-39.9, adult; E83.52 Hypercalcemia
CPT/HCPCS: 36415; 71046; 80076; 83690; 84703; 88304; 93005; J0694; J1100; J1170; J2001; J2250; J2405; J2704; J2710; J3010; J7120

== ENCOUNTER 2023-06-29 13:33 | Observation (INO) | payer OTHER, SELFPAY ==
[2023-06-29] MEDS ORDERED: TENECTEPLASE 50 MG/10 ML VIAL IV ONE (14:16)
[2023-06-29 14:17] LABS: Absolute Basophils 0.1 K/uL (0-0.5); Absolute Eosinophils 0.2 K/uL (0-0.5); Absolute Monocytes 0.4 K/uL (0.1-1.3); Absolute Neutrophil 4.7 K/uL (1.8-8.0); Basophils % 1.3 % (0-1.3); Eosinophils % 2.7 % (0-4.4); Hematocrit 40.4 % (36.0-45.0); Hemoglobin 14.3 g/dL (12.0-15.0); Lymphocytes % 27.1 % (15.3-44.8); MCH 31.3 pg (27.0-35.0); MCHC 35.4 g/dL (32.0-36.0); MCV 88.4 fL (80-100); MPV 8.5 fL (7.6-11.3); Monocytes % 5.7 % (3.3-12.3); Neutrophils % 63.2 % (41.7-73.7); Platelets 239 thou/uL (152-406); RBC Red Blood Cell Count 4.57 M/uL (3.86-4.86); Red Cell Distribution Width 13.9 % (12.1-15.2)
--- NOTE | 2023-06-29 14:24 | RAD REPORT ---
EXAM DESCRIPTION: CT - Ct Stroke Brain Wo Cont - 06/29/2023 2:02 pm CLINICAL HISTORY: STROKE ALERT COMPARISON: Head Brain Wo Cont dated 03/07/2017; CT-STROKE BRAIN W/O CONTRAST dated 08/26/2014; Neck Angio dated 06/29/2023; Head angio dated 06/29/2023 TECHNIQUE: Noncontrast head CT images were obtained without IV contrast. Multiplanar reformats were generated and reviewed. All CT scans are performed using dose optimization technique as appropriate and may include automated exposure control or mA/KV adjustment according to patient size. FINDINGS: No intracranial hemorrhage, mass, or edema. Midline structures are unremarkable. Normal ventricular caliber for age. Correa-white matter differentiation is preserved, without evidence of acute infarct. No abnormal extra- axial fluid collections. Mastoid air cells are well aerated. Left maxillary sinus mucous retention cyst. No acute bony findings. IMPRESSION: No evidence of an acute intracranial process. The findings were communicated to Shar Knutson on 06/29/2023 at 14:17 hours.
[2023-06-29 14:29] LABS: PT Prothrombin Time 11.5 SECONDS (9.5-12.5); PTT, Activated Partial Thromb 29.4 SECONDS (24.3-36.9); Protime INR 1.05
[2023-06-29] MEDS ORDERED: FOLIC ACID 5 MG/ML VIAL ONE (14:32)
--- NOTE | 2023-06-29 14:33 | RAD REPORT ---
EXAM DESCRIPTION: CT - Neck Angio - 06/29/2023 2:04 pm CLINICAL HISTORY: vision loss COMPARISON: No comparisons TECHNIQUE: Axial CT angiography images of the neck was performed with multiplanar and maximum intens ity projection reconstructions. Images performed following intravenous administration of 100mL Isovue 370. All CT scans are performed using dose optimization technique as appropriate and may include automated exposure control or mA/KV adjustment according to patient size. Quantification of carotid stenosis, if any, is performed according to NASCET criteria. FINDINGS: A left aortic arch is identified with normal three vessel configuration of the great vesse ls. No significant flow abnormality is seen of the common carotid bilaterally. No significant stenosis is identified involving the cervical segments of both internal carotid arteri es. Normal flow is seen within both vertebral arteries, although segments of the left vertebral artery ar e obscured by dense adjacent venous contrast, throughout most of the V1 segment and proximal V2 segme nt. IMPRESSION: No significant flow abnormality of the neck vessels is identified. CAROTID STENOSIS REFERENCE USING NASCET CRITERIA: % ICA stenosis = (1 - narrowest ICA diameter/diameter of distal cervical ICA) x 100. Mild - <50% stenosis. Moderate - 50-69% stenosis. Severe - 70-94% stenosis. Near occlusion - 95-99% stenosis. Occluded - 100% stenosis.
[2023-06-29 14:36] LABS: Albumin 3.2 g/dL (3.4-5.0); Albumin/Globulin Ratio 0.8 (1.1-1.8); Anion Gap 7.4 mEq/L (5.0-15.0); Bilirubin Direct 0.1 mg/dL (0-0.2); Bilirubin Indirect, Calculated 0.4 mg/dL (0.2-0.8); Bilirubin Total 0.5 mg/dL (0.2-1.0); Globulin 3.9 g/dL (2.3-3.5); Potassium 3.4 mEq/L (3.5-5.1); Protein, Total 7.1 g/dL (6.4-8.2); Troponin High Sensitivity 44.4 pg/mL (<58.9)
--- NOTE | 2023-06-29 14:57 | RAD REPORT ---
EXAM DESCRIPTION: CT - Head angio - 06/29/2023 2:03 pm CLINICAL HISTORY: Weakness;Visual disturbances COMPARISON: Ct Stroke Brain Wo Cont dated 06/29/2023; Head Brain Wo Cont dated 03/07/2017 TECHNIQUE: Axial CT angiography images of the head was performed with multiplanar and maximum intens ity projection reconstructions. Images performed following intravenous administration of 100mL Isovue 370. All CT scans are performed using dose optimization technique as appropriate and may include automated exposure control or mA/KV adjustment according to patient size. FINDINGS: No evidence of large vessel occlusion. No evidence of aneurysm or dissection flap is detec liz. No flow-limiting stenosis or vascular malformation identified. Antegrade flow is seen in the vertebral arteries. The vertebral arteries are codominant. The visualized dural venous sinuses are grossly patent. IMPRESSION: No evidence of large vessel occlusion or flow-limiting stenosis.
--- NOTE | 2023-06-29 15:12 | EDPHYS ---
Physician Documentation [facility] Name: Valeria Bernal Age: 43 yrs Sex: Female : 1980 Arrival Date: 06/29/2023 Time: 13:33 Bed 3 Private MD: ED Physician Shar Knutson HPI: 06/28 13:50 This 43 yrs old Female presents to ER via Unassigned with complaints of Chest cp Tightness, Vision Problem, High Blood Pressure. 13:50 The patient's problem is reported as Patient is a 43-year-old female with past medical cp history significant for hypertension who presents to the emergency department with reported sudden onset of loss of vision in both eyes that started about 10:00 this morning while she was at work. Patient reports her vision is back to normal currently but that she continues to have some numbness to her left arm and left leg, her body feels heavy but the left arm and leg feels heavier. Patient reports some chest tightness. 13:50 Associated signs and symptoms: Pertinent positives: chest heaviness, Pertinent cp negatives: abdominal pain, confusion, headache, palpitations. Patient's baseline: Neuro: alert and fully oriented, Motor: no deficits, Ambulation: walks without assistance, Speech: normal. Historical: - Allergies: 13:48 No Known Drug Allergies; ll1 - PMHx: 13:48 Hypertensive disorder; Thyroid problem; ll1 - PSHx: 13:48 section; ll1 - Immunization history:: Adult Immunizations up to date. - Social history:: Smoking status: Patient reports the use of cigarette tobacco products, smokes one-half pack cigarettes per day. ROS: 13:55 Constitutional: Negative for body aches, chills, fever, poor PO intake, cp 13:55 Eyes: Positive for vision loss, Negative for pain, redness, cp 13:55 Cardiovascular: Positive for chest heaviness, 13:55 Respiratory: Negative for cough, shortness of breath, wheezing, 13:55 Abdomen/GI: Negative for abdominal pain, vomiting, diarrhea, constipation, 13:55 Neuro: Positive for numbness, of the left arm and left leg, heaviness, general weakness, Negative for headache, speech changes, syncope, 13:55 All other systems are negative, Exam: 13:57 ECG was reviewed by the Attending Physician. cp 14:16 Head/Face: Normocephalic, atraumatic. cp 14:16 Constitutional: The patient appears in no acute distress, alert, awake, non-diaphoretic, non-toxic, well developed, well nourished, 14:16 Eyes: Periorbital structures: appear normal, Pupils: equal, round, and reactive to light and accomodation, Extraocular movements: intact throughout, Conjunctiva: normal, no exudate, no injection, Sclera: no appreciated abnormality, Lids and lashes: appear normal, bilaterally, 14:16 ENT: External ear(s): are unremarkable, Nose: is normal, Mouth: Lips: moist, Oral mucosa: pink and intact, moist, Posterior pharynx: is normal, airway is patent, no erythema, no exudate, 14:16 Chest/axilla: Inspection: normal, 14:16 Cardiovascular: Rate: normal, Rhythm: regular, Edema: is not appreciated, JVD: is not appreciated, 14:16 Respiratory: the patient does not display signs of respiratory distress, Respirations: normal, no use of accessory muscles, no retractions, labored breathing, is not present, Breath sounds: are clear throughout, no decreased breath sounds, no stridor, no wheezing, 14:16 Abdomen/GI: Inspection: abdomen appears normal, Palpation: abdomen is soft and non-tender, in all quadrants, 14:16 Neuro: Orientation: to person, place \T\ time. Mentation: is normal, Cerebellar function: Romberg testing is negative, normal finger to nose testing, heel to gentile testing is normal, Motor: moves all fours, no focal deficits, Sensation: numbness, that is mild, of the left leg, 14:33 Radiologist reports: no acute findings cp Vital Signs: 13:54 BP 154 / 93; Pulse 71; Resp 18; Temp 98.2; Pulse Ox 99% ; Weight 102.06 kg; Height 5 ll1 ft. 4 in. ; Pain 3/10; 15:03 BP 147 / 98; Pulse 76; Resp 16 S; Pulse Ox 99% on R/A; kc6 16:49 BP 136 / 96; Pulse 71; Resp 16 S; Pulse Ox 100% on R/A; kc6 13:54 Body Mass Index 38.62 (102.06 kg, 162.56 cm) ll1 13:54 Pain Scale: Adult ll1 NIH Stroke Scale Scores: 14:10 NIHSS Score: 1 kc6 14:16 NIHSS Score: 1 cp MDM: 13:45 Patient medically screened. ec2 14:00 Differential diagnosis: CVA, TIA, metabolic disorder, drug effects, acute SD. cp 15:06 Data reviewed: vital signs, nurses notes, lab test result(s), EKG, radiologic studies, cp CT scan, plain films, and as a result, I will admit patient. ED course: reevaluation: left side heaviness improved, continues to have mild numbness of left leg. 15:15 Management of patient was discussed with the following: Hospitalist: Anitha Vasquez TIGHT COOPER cp will admit for DR Kumar after discussion. I considered the following discharge prescriptions or medication management in the emergency department Medications were administered in the Emergency Department. See MAR. 15:15 Care significantly affected by the following chronic conditions: Hypertension. cp Counseling: I had a detailed discussion with the patient and/or guardian regarding the historical points, exam findings, and any diagnostic results supporting the discharge/admit diagnosis, radiology results, the need for further work-up and treatment in the hospital. Response to treatment: the patient's symptoms have mildly improved after treatment. 06/28 13:50 Order name: Basic Metabolic Panel; Complete Time: 14:48 cp 06/28 14:48 Interpretation: Normal except: K 3.4; GLUC 131; GFR 81; CA 8.2. cp 06/28 13:50 Order name: CBC with Diff; Complete Time: 14:48 cp 06/28 13:50 Order name: Hepatic Function; Complete Time: 14:48 cp 06/28 13:50 Order name: High Sensitivity Troponin; Complete Time: 14:48 cp 06/28 13:50 Order name: Magnesium; Complete Time: 14:48 cp 06/28 13:50 Order name: Protime (+inr); Complete Time: 14:48 cp 06/28 13:50 Order name: Ptt, Activated; Complete Time: 14:48 cp 06/28 14:26 Order name: Glucose, Ancillary Testing; Complete Time: 14:48 EDMS 06/28 16:01 Order name: C-Reactive Protein EDMS 06/28 16:01 Order name: C-Reactive Protein EDMS 06/28 16:01 Order name: CBC with Automated Diff EDMS 06/28 16:02 Order name: CBC with Automated Diff EDMS 06/28 16:02 Order name: Comprehensive Metabolic Panel EDMS 06/28 16:02 Order name: Comprehensive Metabolic Panel EDMS 06/28 16:02 Order name: Lipid Profile EDMS 06/28 16:02 Order name: Lipid Profile EDMS 06/28 16:02 Order name: Magnesium EDMS 06/28 16:02 Order name: Magnesium EDMS 06/28 16:02 Order name: Phosphorus EDMS 06/28 16:02 Order name: Phosphorus EDMS 06/28 16:02 Order name: Protime (+INR) EDMS 06/28 16:02 Order name: Protime (+INR) EDMS 06/28 16:02 Order name: Protime (+INR) EDMS 06/28 16:02 Order name: Protime (+INR) EDMS 06/28 16:02 Order name: Protime (+INR) EDMS 06/28 16:02 Order name: Protime (+INR) EDMS 06/28 16:02 Order name: PTT, Activated Partial Thromb EDMS 06/28 16:02 Order name: PTT, Activated Partial Thromb EDMS 06/28 16:02 Order name: PTT, Activated Partial Thromb EDMS 06/28 16:02 Order name: PTT, Activated Partial Thromb EDMS 06/28 16:02 Order name: PTT, Activated Partial Thromb EDMS 06/28 16:02 Order name: PTT, Activated Partial Thromb EDMS 06/28 16:02 Order name: Troponin High Sensitivity EDMS 06/28 16:02 Order name: Troponin High Sensitivity EDMS 06/28 16:02 Order name: Troponin High Sensitivity EDMS 06/28 13:50 Order name: CT Head Angio; Complete Time: 15:00 cp 06/28 13:50 Order name: CT Neck Angio; Complete Time: 14:48 cp 06/28 13:50 Order name: CT Stroke Brain w/o Contrast; Complete Time: 14:48 cp 06/28 13:50 Order name: Stroke CXR 1 View cp 06/28 16:01 Order name: Echo with Doppler EDMS 06/28 13:50 Order name: EKG; Complete Time: 13:51 cp 06/28 16:01 Order name: Physical Therapy Consult EDMS 06/28 16:01 Order name: Speech Therapy Consult EDMS 06/28 13:50 Order name: Accucheck; Complete Time: 14:18 cp 06/28 13:50 Order name: Cardiac monitoring; Complete Time: 14:18 cp 06/28 13:50 Order name: EKG - Nurse/Tech; Complete Time: 13:54 cp 06/28 13:50 Order name: IV Saline Lock; Complete Time: 14:18 cp 06/28 13:50 Order name: Labs collected and sent; Complete Time: 14:18 cp 06/28 13:50 Order name: NPO; Complete Time: 14:18 cp 06/28 13:50 Order name: O2 Per Protocol; Complete Time: 14:18 cp 06/28 13:50 Order name: O2 Sat Monitoring; Complete Time: 14:18 cp 06/28 13:50 Order name: Stroke Swallow Screen; Complete Time: 14:18 cp EC:57 Rate is 75 beats/min. Rhythm is regular. NM interval is normal. QRS interval is normal. cp QT interval is normal. T waves are Inverted in leads III, aVR. Interpreted by me. Reviewed by me. Administered Medications: 14:22 Drug: TNK FOR STROKE - Tenecteplase IV 0.25 mg/kg IV at per protocol once; MAX kc6 DOSE 25 mg, IVP over 5 seconds {Co-Signature: es3 (Dionne David RN).} Route: IV; Rate: per protocol; Site: left antecubital; 15:08 Follow up: Response: No adverse reaction; IV Status: Completed infusion; IV Intake: 5ml kc6 14:35 Drug: foLIC Acid IVPB 1 mg IVPB once Route: IVPB; Site: left antecubital; kc6 15:08 Follow up: Response: No adverse reaction; IV Status: Completed infusion; IV Intake: kc6 0.2ml Disposition: 18:59 Co-signature as Attending Physician, Shar Knutson MD I reviewed the patient's care rt provided by the Advanced Practice Provider and agree with the diagnosis and treatment plan. Disposition Summary: 06/29/23 15:11 Hospitalization Ordered Notes: Hospitalization Status: Inpatient Admission cp Provider: Ana Rosa Kumar cp Condition: Stable cp Problem: new cp Symptoms: have improved cp Bed/Room Type: Standard cp Location: Intensive Care Unit(06/29/23 17:34) ja1 Room Assignment: 4-(06/29/23 17:34) ja1 Diagnosis - Sudden visual loss, bilateral cp - Paresthesia of skin cp - Weakness cp Forms: - Medication Reconciliation Form cp - SBAR form cp - Leadership Thank You Letter jose maria NIH Stroke Scale - NIH Stroke Score Date: 06/29/2023 Time: 14:10 Total Score = 1 10. Dysarthria (speech clarity - read or repeat words) - 0(Normal) 11. Extinction and Inattention (visual/tactile/auditory/spatial/personal) - 0(No abnormality) 1a. Level of Consciousness (LOC) - 0(Alert) 1b. Level of Consciousness (LOC) (Month \T\ Age) - 0(Both) 1c. LOC Commands (Open \T\ Closes Eyes/Video Game Designer) - 0(Both) 2. Best Gaze (Lateral Gaze Paresis) - 0(Normal) 3. Visual Field Loss - 0(No visual loss) 4. Facial Palsy - 0(Normal) 5a. Left Arm: Motor (10-second hold) - 0(No drift) 5b. Right Arm: Motor (10-second hold) - 0(No drift) 6a. Left Leg: Motor (5-second hold - always test supine) - 0(No drift) 6b. Right Leg: Motor (5-second hold - always test supine) - 0(No drift) 7. Limb Ataxia (finger/nose \T\ heel/gentile - test with eyes open) - 0(Absent) 8. Sensory Loss (pinprick arms/legs/face) - 1(Mild to moderate loss) 9. Best Language: Aphasia (description/naming/reading) - 0(No aphasia) Initials: kc6 NIH Stroke Scale - NIH Stroke Score Date: 06/29/2023 Time: 14:16 Total Score = 1 10. Dysarthria (speech clarity - read or repeat words) - 0(Normal) 11. Extinction and Inattention (visual/tactile/auditory/spatial/personal) - 0(No abnormality) 1a. Level of Consciousness (LOC) - 0(Alert) 1b. Level of Consciousness (LOC) (Month \T\ Age) - 0(Both) 1c. LOC Commands (Open \T\ Closes Eyes/Video Game Designer) - 0(Both) 2. Best Gaze (Lateral Gaze Paresis) - 0(Normal) 3. Visual Field Loss - 0(No visual loss) 4. Facial Palsy - 0(Normal) 5a. Left Arm: Motor (10-second hold) - 0(No drift) 5b. Right Arm: Motor (10-second hold) - 0(No drift) 6a. Left Leg: Motor (5-second hold - always test supine) - 0(No drift) 6b. Right Leg: Motor (5-second hold - always test supine) - 0(No drift) 7. Limb Ataxia (finger/nose \T\ heel/gnetile - test with eyes open) - 0(Absent) 8. Sensory Loss (pinprick arms/legs/face) - 1(Mild to moderate loss) 9. Best Language: Aphasia (description/naming/reading) - 0(No aphasia) Initials: cp Signatures: Dispatcher [employer] EDMS Prasanna Mcwilliams PA PA cp Tyler John RN RN ja1 Kvng Mena RN RN ll1 Irene Maria RN RN kc6 Shar Knutson MD MD rt [place], [facility] Filemon Harvey MD MD ec2 Dionne David RN es3 Corrections: (The following items were deleted from the chart) 16:42 15:11 Intensive Care Unit cp bc6 16:42 15:11 cp bc6 17:34 16:42 [facility] ER HOLD bc6 ja1 17:34 16:42 ERHOLD- bc6 ja1
--- NOTE | 2023-06-29 15:12 | ER ---
Nurse's Notes [facility] Name: Valeria Bernal Age: 43 yrs Sex: Female : 1980 Arrival Date: 06/29/2023 Time: 13:33 Bed 3 Private MD: Diagnosis: Sudden visual loss, bilateral;Paresthesia of skin;Weakness Presentation: 06/28 13:49 Coronavirus screen: Vaccine status: Patient reports receiving the 2nd dose of the covid ll1 vaccine. Client denies travel out of the [place] in the last 14 days. At this time, the client does not indicate any symptoms associated with coronavirus-19. Ebola Screen: Patient denies travel to an Ebola-affected area in the 21 days before illness onset. 13:49 Method Of Arrival: Ambulatory ll1 13:54 Chief complaint: Patient states: Vision got very blurry at 10 AM, last for 1 hour, then ll1 got better. 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 Slight SOB noted. Code stroke called per ABHINAV Veloz. Initial Sepsis Screen: Does the patient meet any 2 criteria? No. Patient's initial sepsis screen is negative. Does the patient have a suspected source of infection? No. Patient's initial sepsis screen is negative. Risk Assessment: Do you want to hurt yourself or someone else? Patient reports no desire to harm self or others. Onset of symptoms was June 29, 2023. 13:54 Acuity: [place] 2 ll1 Triage Assessment: 13:55 General: Appears in no apparent distress. Behavior is calm, cooperative, appropriate ll1 for age. Pain: Complains of pain in chest. Cardiovascular: Reports chest pain, fatigue. Respiratory: Reports shortness of breath. Musculoskeletal: Reports weakness in left arm. Historical: - Allergies: 13:48 No Known Drug Allergies; ll1 - PMHx: 13:48 Hypertensive disorder; Thyroid problem; ll1 - PSHx: 13:48 section; ll1 - Immunization history:: Adult Immunizations up to date. - Social history:: Smoking status: Patient reports the use of cigarette tobacco products, smokes one-half pack cigarettes per day. Screenin:10 VAN Screening: Arm Drift: Patient shows no arm weakness. Patient is VAN negative. kc6 Visual Disturbance: No visual disturbance noted. Aphasia: No aphasia noted. Neglect: No neglect noted. 14:28 Hiral Swallow Protocol Brief Cognitive Screen What is your name? Normal, Where are you kc6 right now? Normal, What year is it? Normal. Oral Mechanism Examination Facial Symmetry: Normal, Motion: Normal, Lip Closure: Normal, Oral Mechanism Result: Normal. 3 oz Water Swallow Challenge: Pt able to drink all water without stopping, coughing, choking or throat clearing: Yes Result: PASS MD Notified: Prasanna LA. 14:29 [facility] ED Fall Risk Assessment (Adult) History of falling in the last 3 months, kc6 including since admission No falls in past 3 months (0 pts) Confusion or Disorientation No (0 pts) Intoxicated or Sedated No (0 pts) Impaired Gait No (0 pts) Mobility Assist Device Used No (0 pt) Altered Elimination No (0 pt) Score/Fall Risk Level 0 - 2 = Low Risk. Abuse screen: Denies threats or abuse. Denies injuries from another. Nutritional screening: No deficits noted. Tuberculosis screening: No symptoms or risk factors identified. Assessment: 13:43 Reassessment: No EKG machine available at this time. ll1 14:10 General: Appears in no apparent distress. comfortable, well groomed, well developed, kc6 Behavior is calm, cooperative, appropriate for age. Neuro: Level of Consciousness is awake, alert, obeys commands, Oriented to person, place, time, situation, Appropriate for age Reports blurred vision dizziness, numbness in left arm and left leg weakness. Cardiovascular: Heart tones S1 S2 present Capillary refill < 3 seconds Rhythm is sinus rhythm. Respiratory: Airway is patent Trachea midline Respiratory effort is even, unlabored, Respiratory pattern is regular, symmetrical. GI: No signs and/or symptoms were reported involving the gastrointestinal system. : No signs and/or symptoms were reported regarding the genitourinary system. EENT: No signs and/or symptoms were reported regarding the EENT system. Derm: No signs and/or symptoms reported regarding the dermatologic system. Skin is intact, is healthy with good turgor, Skin is pink, warm \\T\\ dry. Musculoskeletal: No signs and/or symptoms reported regarding the musculoskeletal system. Circulation, motion, and sensation intact. Capillary refill < 3 seconds, Range of motion: intact in all extremities. 14:40 Reassessment: please see stroke packet for further vitals. kc6 15:03 Reassessment: Patient appears in no apparent distress at this time. No changes from kc6 previously documented assessment. Patient and/or family updated on plan of care and expected duration. Pain level reassessed. Patient is alert, oriented x 3, equal unlabored respirations, skin warm/dry/pink. 16:49 Reassessment: Patient appears in no apparent distress at this time. No changes from kc6 previously documented assessment. Patient and/or family updated on plan of care and expected duration. Pain level reassessed. Patient is alert, oriented x 3, equal unlabored respirations, skin warm/dry/pink. Vital Signs: 13:54 BP 154 / 93; Pulse 71; Resp 18; Temp 98.2; Pulse Ox 99% ; Weight 102.06 kg; Height 5 ll1 ft. 4 in. ; Pain 3/10; 15:03 BP 147 / 98; Pulse 76; Resp 16 S; Pulse Ox 99% on R/A; kc6 16:49 BP 136 / 96; Pulse 71; Resp 16 S; Pulse Ox 100% on R/A; kc6 13:54 Body Mass Index 38.62 (102.06 kg, 162.56 cm) ll1 13:54 Pain Scale: Adult ll1 NIH Stroke Scale Scores: 14:10 NIHSS Score: 1 kc6 14:16 NIHSS Score: 1 cp ED Course: 13:35 Patient arrived in ED. rg4 13:45 Filemon Harvey MD is Attending Physician. ec2 13:46 Prasanna Mcwilliams PA is PHCP. ll1 13:47 Arm band placed on. ll1 13:51 Shar Knutson MD is Attending Physician. cp 13:53 EKG completed in triage. Results shown to MD. ll1 13:55 Triage completed. ll1 14:04 CT Stroke Brain w/o Contrast In Process Unspecified. EDMS 14:05 CT Head Angio In Process Unspecified. EDMS 14:06 CT Neck Angio In Process Unspecified. EDMS 14:06 Inserted saline lock: 22 gauge in left antecubital area, using aseptic technique. Blood kc6 collected. 14:07 Tatyana Gross is Primary Nurse. cp4 14:10 Patient has correct armband on for positive identification. Bed in low position. Call kc6 light in reach. Side rails up X2. Client placed on continuous cardiac and pulse oximetry monitoring. NIBP monitoring applied. api developer on. 14:27 Stroke CXR 1 View In Process Unspecified. EDMS 14:28 Inserted saline lock: 20 gauge in right antecubital area, using aseptic technique. kc6 Patient maintains SpO2 saturation greater than 95% on room air. 14:35 Irene Maria, STARLA is Primary Nurse. kc6 15:10 Ana Rosa Kumar MD is Hospitalizing Provider. cp 16:52 No provider procedures requiring assistance completed. Patient admitted, IV remains in kc6 place. Administered Medications: 14:22 Drug: TNK FOR STROKE - Tenecteplase IV 0.25 mg/kg IV at per protocol once; MAX kc6 DOSE 25 mg, IVP over 5 seconds {Co-Signature: es3 (Dionne David RN).} Route: IV; Rate: per protocol; Site: left antecubital; 15:08 Follow up: Response: No adverse reaction; IV Status: Completed infusion; IV Intake: 5ml kc6 14:35 Drug: foLIC Acid IVPB 1 mg IVPB once Route: IVPB; Site: left antecubital; kc6 15:08 Follow up: Response: No adverse reaction; IV Status: Completed infusion; IV Intake: kc6 0.2ml Medication: 16:52 VIS not applicable for this client. kc6 Intake: 15:08 IV: 5ml; Total: 5ml. kc6 15:08 IV: 0ml; Total: 5ml. kc6 Outcome: 15:11 Decision to Hospitalize by Provider. cp 16:52 Admitted to ER Hold. Please see [facility] for further documentation. kc6 16:52 Condition: stable 16:52 Instructed on the need for admit, 18:14 Patient left the ED. kc6 NIH Stroke Scale - NIH Stroke Score Date: 06/29/2023 Time: 14:10 Total Score = 1 10. Dysarthria (speech clarity - read or repeat words) - 0(Normal) 11. Extinction and Inattention (visual/tactile/auditory/spatial/personal) - 0(No abnormality) 1a. Level of Consciousness (LOC) - 0(Alert) 1b. Level of Consciousness (LOC) (Month \\T\\ Age) - 0(Both) 1c. LOC Commands (Open \\T\\ Closes Eyes/Stadium Attendant) - 0(Both) 2. Best Gaze (Lateral Gaze Paresis) - 0(Normal) 3. Visual Field Loss - 0(No visual loss) 4. Facial Palsy - 0(Normal) 5a. Left Arm: Motor (10-second hold) - 0(No drift) 5b. Right Arm: Motor (10-second hold) - 0(No drift) 6a. Left Leg: Motor (5-second hold - always test supine) - 0(No drift) 6b. Right Leg: Motor (5-second hold - always test supine) - 0(No drift) 7. Limb Ataxia (finger/nose \\T\\ heel/gentile - test with eyes open) - 0(Absent) 8. Sensory Loss (pinprick arms/legs/face) - 1(Mild to moderate loss) 9. Best Language: Aphasia (description/naming/reading) - 0(No aphasia) Initials: kc6 NIH Stroke Scale - NIH Stroke Score Date: 06/29/2023 Time: 14:16 Total Score = 1 10. Dysarthria (speech clarity - read or repeat words) - 0(Normal) 11. Extinction and Inattention (visual/tactile/auditory/spatial/personal) - 0(No abnormality) 1a. Level of Consciousness (LOC) - 0(Alert) 1b. Level of Consciousness (LOC) (Month \\T\\ Age) - 0(Both) 1c. LOC Commands (Open \\T\\ Closes Eyes/Stadium Attendant) - 0(Both) 2. Best Gaze (Lateral Gaze Paresis) - 0(Normal) 3. Visual Field Loss - 0(No visual loss) 4. Facial Palsy - 0(Normal) 5a. Left Arm: Motor (10-second hold) - 0(No drift) 5b. Right Arm: Motor (10-second hold) - 0(No drift) 6a. Left Leg: Motor (5-second hold - always test supine) - 0(No drift) 6b. Right Leg: Motor (5-second hold - always test supine) - 0(No drift) 7. Limb Ataxia (finger/nose \\T\\ heel/gentile - test with eyes open) - 0(Absent) 8. Sensory Loss (pinprick arms/legs/face) - 1(Mild to moderate loss) 9. Best Language: Aphasia (description/naming/reading) - 0(No aphasia) Initials: cp Signatures: Dispatcher [employer] EDMS Prasanna Mcwilliams PA PA cp Garcia, Rubi rg4 Kvng Mena RN RN ll1 Irene Maria RN RN kc6 Filemon Harvey MD MD ec2 Tatyana Gross cp4 Dionne David RN es3 Corrections: (The following items were deleted from the chart) 15:49 13:47 EKG completed in triage. Results shown to MD. ll1 ll1
--- NOTE | 2023-06-29 15:24 | RAD REPORT ---
EXAM DESCRIPTION: [facility] Single View06/29/2023 2:25 pm CLINICAL HISTORY: weakness COMPARISON: Chest Pa And Lat (2 Views) dated 02/11/2023; Chest Single View dated 03/07/2017; CHEST S FLORENCIO VIEW dated 08/26/2014; CHEST SINGLE VIEW dated 09/20/2012 TECHNIQUE: Portable AP view of the chest. FINDINGS: The lungs are clear. No pneumothorax or effusion. The cardiomediastinal contours are unre markable. IMPRESSION: No acute cardiopulmonary process.
[2023-06-29] MEDS ORDERED: ACETAMINOPHEN 500 MG TAB PO PRN (15:55)
[2023-06-29] MEDS ORDERED: ONDANSETRON 4 MG/2 ML VIAL IV PRN (15:55)
--- NOTE | 2023-06-29 16:06 | P.HP ---
Certification for Inpatient Patient admitted to: Inpatient With expected LOS: >2 Midnights Patient will require the following post-hospital care: None Practitioner: I am a practitioner with admitting privileges, knowledge of patient current condition, hospital course, and medical plan of care. Services: Services provided to patient in accordance with Admission requirements found in Title 42 Section 412.3 of the Code of Federal Regulations Patient History Date of Service: 06/29/23 Reason for admission: Vision abnormality and left-sided numbness History of Present Illness: Patient is a 43-year-old female who states she started having some issues last night. She says she was having some swelling in her lower extremities and her upper extremities. When she woke up the swelling had resolved. She states that she was not really feeling much better this morning and around 10:00 she felt like she had lost her vision completely. It came back by noon. She started noticing some tingling in the left side of her hand so she came to the emergency room. They felt like she has some weakness in the left hand and left leg so they gave her TNK. She was given TNK around 1430 which was about 4-1/2 hours after her neurologic symptoms started. Neurology was consulted prior to giving TNK and they were agreeable for TNK to be given. Patient CT scan was unremarkable. There was no intracranial hemorrhage. Will repeat CT 24 hours after TNK to make sure no organic neurologic issues. MRI of the brain is pending as well. Patient was also having some chest pressure. I will get an echocardiogram and serial troponins along with serial EKG. Patient will be admitted for observation. Patient's neurologic status have completely resolved. Allergies No Known Drug Allergies Allergy (Verified 02/11/23 14:16) Unknown Home Medications: Amlodipine [Norvasc*] 1 tab PO DAILY 02/11/23 Labetalol HCl 1 tab PO DAILY 02/11/23 Levothyroxine [Synthroid*] 1 tab PO DAILY 02/11/23 - Past Medical/Surgical History Past Medical History: Patient denies medical history Past Surgical History: Patient denies surgical history - Family History Father Family History: Reviewed- Non-Contributory - Social History Smoking Status: Former smoker Alcohol use: No CD- Drugs: No Review of Systems 10-point ROS is otherwise unremarkable Physical Examination - Vital Signs Temperature: 98 F (reviewed) - Physical Exam General: Alert, In no apparent distress, Oriented x3 HEENT: Atraumatic, PERRLA, Mucous membr. moist/pink, EOMI, Sclerae nonicteric Neck: Supple, 2+ carotid pulse no bruit, No LAD, Without JVD or thyroid abnormality Respiratory: Clear to auscultation bilaterally, Normal air movement Cardiovascular: Regular rate/rhythm, Normal S1 S2 Gastrointestinal: Normal bowel sounds, Soft and benign, Non-distended, No tenderness Musculoskeletal: No clubbing, No swelling, No tenderness Integumentary: No rashes Neurological: Normal gait, Normal speech, Normal strength at 5/5 x4 extr, Normal tone, Sensation intact, Cranial nerves 3-12 intact, Normal affect Lymphatics: No axilla or inguinal lymphadenopathy - Studies Laboratory Data (last 24 hrs) 06/29/23 06/29/23 06/29/23 14:00 14:00 14:00 WBC 7.40 Hgb 14.3 Hct 40.4 Plt Count 239 PT 11.5 INR 1.05 APTT 29.4 Sodium 137 Potassium 3.4 L BUN 9 Creatinine 0.91 Glucose 131 H Magnesium 2.0 Total Bilirubin 0.5 AST 14 L ALT 25 Alkaline Phosphatase 87 Assessment & Plan - Problems (Diagnosis) (1) Paresthesia of left arm and leg Current Visit: Yes Status: Acute (2) Left-sided weakness Current Visit: Yes Status: Acute (3) Vision loss Current Visit: Yes Status: Acute - Plan 1. MRI of the brain 2. Antiplatelet and statin therapy 3. Lipid profile 4. Physical therapy and speech therapy consultation 5. DVT prophylaxis 6. Neurochecks every 4 hours 7. Reassess stroke scale 8. Echo 9. GI and DVT prophylaxis Discharge Plan: Home Plan to discharge in: 24 Hours - Advance Directives Does patient have a Living Will: No Does patient have a Durable POA for Healthcare: No - Code Status/Comfort Care Code Status Assessed: Yes Code Status: Full Code Critical Care: No Time Spent Managing PTS Care (In Minutes): 45
[2023-06-29 18:30] VITALS: O2SAT 100
[2023-06-29] MEDS: NA CHLORIDE 0.9% 1,000 ML IV SCH (19:29)
[2023-06-29] MEDS: POTASSIUM CL SA 10 MEQ TAB PO ONE (20:37)
[2023-06-30 04:53] LABS: Absolute Basophils 0.1 K/uL (0-0.5); Absolute Eosinophils 0.3 K/uL (0-0.5); Absolute Lymphocytes (CBC) 2.3 K/uL (0.7-4.9); Absolute Monocytes 0.6 K/uL (0.1-1.3); Basophils % 0.8 % (0-1.3); Eosinophils % 3.7 % (0-4.4); Hematocrit 37.6 % (36.0-45.0); Hemoglobin 12.8 g/dL (12.0-15.0); Lymphocytes % 32.1 % (15.3-44.8); MCH 30.5 pg (27.0-35.0); MCHC 34.1 g/dL (32.0-36.0); MCV 89.5 fL (80-100); MPV 8.6 fL (7.6-11.3); Monocytes % 8.2 % (3.3-12.3); Neutrophils % 55.2 % (41.7-73.7); Nucleated Red Blood Cells % 0.1 % (0-0); Platelets 204 thou/uL (152-406); Red Cell Distribution Width 14.1 % (12.1-15.2)
[2023-06-30 05:00] LABS: PT Prothrombin Time 10.7 SECONDS (9.5-12.5); PTT, Activated Partial Thromb 29.3 SECONDS (24.3-36.9); Protime INR 0.97
[2023-06-30 05:13] LABS: Albumin 2.9 g/dL (3.4-5.0); Albumin/Globulin Ratio 0.9 (1.1-1.8); Anion Gap 6.7 mEq/L (5.0-15.0); Bilirubin Total 0.2 mg/dL (0.2-1.0); C-Reactive Protein 4.27 mg/L (<3.00); Globulin 3.4 g/dL (2.3-3.5); Magnesium 2.2 mg/dL (1.6-2.4); Phosphorus 2.6 mg/dL (2.5-4.9); Potassium 3.7 mEq/L (3.5-5.1); Protein, Total 6.3 g/dL (6.4-8.2); Troponin High Sensitivity 43.5 pg/mL (<58.9)
[2023-06-30 05:43] VITALS: BMI 38.8
[2023-06-30] MEDS ORDERED: PROPRANOLOL HCL 40 MG TAB ONE (12:51)
--- NOTE | 2023-06-30 12:52 | RAD REPORT ---
EXAM DESCRIPTION: MRI - Brain Wo Cont - 06/30/2023 11:37 am CLINICAL HISTORY: TNK yest, COMPARISON: Noncontrast head CT of the previous day TECHNIQUE: Multiplanar multisequence MRI of the brain performed without IV contrast. FINDINGS: No evidence of acute infarct or other diffusion signal abnormality. No evidence of acute intracranial hemorrhage or abnormal extra-axial fluid collections. Mild diffuse parenchymal volume loss. Ventricular caliber otherwise within normal for age. Midline st ructures are unremarkable. Scattered subcortical and deep white matter T2/FLAIR hyperintensities, nonspecific, but suggestive of chronic small vessel ischemic changes. No mass effect or midline shift. Major vascular flow voids are preserved. Mastoid air cells are well aerated. Left maxillary sinus mucous retention cysts. IMPRESSION: No acute intracranial process. No evidence of ventriculomegaly or mass effect.
[2023-06-30] MEDS: PROPRANOLOL HCL 40 MG TAB PO ONE (12:54)
[2023-06-30 13:34] VITALS: TEMP 97.9
[2023-06-30] MEDS: ASPIRIN EC 81 MG TAB PO SCH (14:30)
--- NOTE | 2023-06-30 14:36 | RAD REPORT ---
EXAM DESCRIPTION: CT - Head Brain Wo Cont - 06/30/2023 2:31 pm CLINICAL HISTORY: Post TNK Headache, drowsiness, CVA symptomology COMPARISON: Head angio dated 06/29/2023; Ct Stroke Brain Wo Cont dated 06/29/2023; Brain Wo Cont dated 06/30/2023; Neck Angio dated 06/29/2023 TECHNIQUE: All CT scans are performed using dose optimization technique as appropriate and may inclu de automated exposure control or mA/KV adjustment according to patient size. FINDINGS: No intracranial hemorrhage, hydrocephalus or extra-axial fluid collection.No areas of brai n edema or evidence of midline shift. The paranasal sinuses and mastoids are essentially clear. The calvarium is intact. IMPRESSION: No acute intracranial abnormality.
[2023-06-30] MEDS ORDERED: HYDRALAZINE HCL 20 MG/ML VIAL ONE (15:03)
[2023-06-30] MEDS: HYDRALAZINE HCL 20 MG/ML VIAL IV ONE (15:04)
[2023-06-30] MEDS: AMLODIPINE 10 MG TAB PO ONE (15:04)
[2023-06-30] MEDS: ENOXAPARIN 40 MG/0.4 ML SQ SCH (15:05)
--- NOTE | 2023-06-30 15:59 | P.DS ---
Admission Date: 06/29/23 Discharge Date: 06/30/23 Comment: Keep a blood pressure log for PCP review Reason for Admission: Vision abnormality and left-sided numbness Consultations: Sulema - neurology - Problems (1) TIA (transient ischemic attack) Status: Acute (2) Hypertension Status: Acute Qualifiers: Hypertension type: primary hypertension Qualified Code(s): I10 - Essential (primary) hypertension (3) Left-sided weakness Status: Acute (4) Paresthesia of left arm and leg Status: Acute (5) Vision loss Status: Acute Brief History of Present Illness: Patient is a 43-year-old female who states she started having some issues last night. She says she was having some swelling in her lower extremities and her upper extremities. When she woke up the swelling had resolved. She states that she was not really feeling much better this morning and around 10:00 she felt like she had lost her vision completely. It came back by noon. She started not icing some tingling in the left side of her hand so she came to the emergency room. They felt like she has some weakness in the left hand and left leg so they gave her TNK. She was given TNK around 1430 which was about 4-1/2 hours after her neurologic symptoms started. Neurology was consulted prior to giving TNK and they were agreeable for TNK to be given. Patient CT scan was unremarkable. There was no intracranial hemorrhage. Will repeat CT 24 hours after TNK to make sure no organic neurologic issues. MRI of the brain is pending as well. Patient was also having some chest pressure. I will get an echocardiogram and serial troponins along with serial EKG. Patient will be admitted for observation. Patient's neurologic status have completely resolved. Hospital Course: Ms. Bernal had no complications over her hospital stay. She remains neurologically intact. She was able to ambulatory to the restroom without difficulty. MRI clear of any acute findings. Repeat CT negative for any acute findings. Serial troponins were negative. Ms. Bernal will be discharged to follow-up with PCP with new medications including Norvasc 10 mg daily, losartan 25 mg twice daily, atorvastatin 20 mg p.o. nightly, aspirin 81 mg p.o. every morning, folic acid. Ms. Bernal should keep a blood pressure log to help with management of essential hypertension. She takes propranolol 40 mg p.o. twice daily for tremor and will continue this medication. <Anitha Vasquez - Last Filed: 06/30/23 15:59> Admission Date: 06/29/23 Discharge Date: 06/30/23 - Problems (1) Paresthesia of left arm and leg Status: Acute (2) Left-sided weakness Status: Acute (3) Vision loss Status: Acute Hospital Course: Agree with plan of care as mentioned above. Patient blood pressure was controlled needs repeat CT of the head with no abnormalities. MRI of the brain was negative. Patient will follow-up as an outpatient for further workup of her vision loss. She will see her PCP with outpatient follow-up with Ophthalmology and Neurology. <Ana Rosa Kumar - Last Filed: 07/01/23 00:38> Disposition: ROUTINE DISCHARGE Discharge Condition: GOOD Vital Signs/Physical Exam: Temp Pulse Resp BP Pulse Ox 97.9 F 71 16 156/101 H 100 06/30/23 12:00 06/30/23 15:04 06/30/23 15:00 06/30/23 15:04 06/30/23 15:00 General: Alert, In no apparent distress, Oriented x3 HEENT: Atraumatic, Normocephalic, PERRLA Neck: 2+ carotid pulse no bruit, JVD not distended Respiratory: Normal air movement Cardiovascular: Normal pulses, Regular rate/rhythm, Normal S1 S2 Capillary refill: <2 Seconds Gastrointestinal: Soft and benign Musculoskeletal: No clubbing, No swelling Integumentary: No rashes Neurological: Normal gait, Normal speech, Normal tone Lymphatics: No axilla or inguinal lymphadenopathy External genitalia: Deferred Rectal: Deferred Laboratory Data at Discharge: WBC 7.20 thou/uL (4.3-10.9) 06/30/23 04:26 Hgb 12.8 g/dL (12.0-15.0) D 06/30/23 04:26 Hct 37.6 % (36.0-45.0) 06/30/23 04:26 Plt Count 204 thou/uL (152-406) 06/30/23 04:26 PT 10.7 SECONDS (9.5-12.5) 06/30/23 04:26 INR 0.97 06/30/23 04:26 APTT 29.3 SECONDS (24.3-36.9) 06/30/23 04:26 Sodium 142 mEq/L (136-145) D 06/30/23 04:26 Potassium 3.7 mEq/L (3.5-5.1) 06/30/23 04:26 BUN 10 mg/dL (7-18) 06/30/23 04:26 Creatinine 0.77 mg/dL (0.55-1.02) 06/30/23 04:26 Glucose 101 mg/dL (74-106) 06/30/23 04:26 Phosphorus 2.6 mg/dL (2.5-4.9) 06/30/23 04:26 Magnesium 2.2 mg/dL (1.6-2.4) 06/30/23 04:26 Total Bilirubin 0.2 mg/dL (0.2-1.0) 06/30/23 04:26 AST 13 U/L (15-37) L 06/30/23 04:26 ALT 22 U/L (13-56) 06/30/23 04:26 Alkaline Phosphatase 75 U/L (45-117) 06/30/23 04:26 Triglycerides 86 mg/dL (<150) 06/30/23 04:26 Cholesterol 149 mg/dL (<200) 06/30/23 04:26 HDL Cholesterol 42 mg/dL (40-60) 06/30/23 04:26 Cholesterol/HDL Ratio 3.55 06/30/23 04:26 <Vasquez,Anitha Benjamin - Last Filed: 06/30/23 15:59> Vital Signs/Physical Exam: Temp Pulse Resp BP Pulse Ox 97.9 F 80 14 127/87 100 06/30/23 16:00 06/30/23 16:00 06/30/23 16:00 06/30/23 16:00 06/30/23 16:00 Laboratory Data at Discharge: WBC 7.20 thou/uL (4.3-10.9) 06/30/23 04:26 Hgb 12.8 g/dL (12.0-15.0) D 06/30/23 04:26 Hct 37.6 % (36.0-45.0) 06/30/23 04:26 Plt Count 204 thou/uL (152-406) 06/30/23 04:26 PT 10.7 SECONDS (9.5-12.5) 06/30/23 04:26 INR 0.97 06/30/23 04:26 APTT 29.3 SECONDS (24.3-36.9) 06/30/23 04:26 Sodium 142 mEq/L (136-145) D 06/30/23 04:26 Potassium 3.7 mEq/L (3.5-5.1) 06/30/23 04:26 BUN 10 mg/dL (7-18) 06/30/23 04:26 Creatinine 0.77 mg/dL (0.55-1.02) 06/30/23 04:26 Glucose 101 mg/dL (74-106) 06/30/23 04:26 Phosphorus 2.6 mg/dL (2.5-4.9) 06/30/23 04:26 Magnesium 2.2 mg/dL (1.6-2.4) 06/30/23 04:26 Total Bilirubin 0.2 mg/dL (0.2-1.0) 06/30/23 04:26 AST 13 U/L (15-37) L 06/30/23 04:26 ALT 22 U/L (13-56) 06/30/23 04:26 Alkaline Phosphatase 75 U/L (45-117) 06/30/23 04:26 Triglycerides 86 mg/dL (<150) 06/30/23 04:26 Cholesterol 149 mg/dL (<200) 06/30/23 04:26 HDL Cholesterol 42 mg/dL (40-60) 06/30/23 04:26 Cholesterol/HDL Ratio 3.55 06/30/23 04:26 <Ana Rosa Kumar - Last Filed: 07/01/23 00:38> Diet: Regular Activity: Ad deandra <Vasquez,Anitha Benjamin - Last Filed: 06/30/23 15:59> <Ana Rosa Kumar - Last Filed: 07/01/23 00:38> Home Medications: Levothyroxine [Synthroid*] 1 tab PO DAILY 02/11/23 Propranolol [Inderal*] 40 mg PO BID 06/29/23 Amlodipine Besylate 10 mg PO DAILY #30 tab 06/30/23 Amlodipine Besylate [Norvasc] 10 mg PO DAILY #90 tab 06/30/23 Aspirin [Aspirin EC 81 MG] 81 mg PO DAILY #30 tab 06/30/23 Aspirin [Aspirin EC 81 MG] 81 mg PO DAILY #90 tab 06/30/23 Atorvastatin Calcium [Lipitor] 20 mg PO BEDTIME #30 tab 06/30/23 Atorvastatin Calcium [Lipitor] 20 mg PO BEDTIME #90 tab 06/30/23 Folic Acid 1 mg PO DAILY #30 tab 06/30/23 Folic Acid 1 mg PO DAILY #90 tab 06/30/23 Losartan Potassium 25 mg PO BID #180 tab 06/30/23 Losartan Potassium 25 mg PO BID #60 tab 06/30/23 New Medications: Amlodipine Besylate 10 mg PO DAILY #30 tab Aspirin [Aspirin EC 81 MG] 81 mg PO DAILY #90 tab Aspirin [Aspirin EC 81 MG] 81 mg PO DAILY #30 tab Folic Acid 1 mg PO DAILY #90 tab Folic Acid 1 mg PO DAILY #30 tab Atorvastatin Calcium [Lipitor] 20 mg PO BEDTIME #90 tab Atorvastatin Calcium [Lipitor] 20 mg PO BEDTIME #30 tab Losartan Potassium 25 mg PO BID #180 tab Losartan Potassium 25 mg PO BID #60 tab Amlodipine Besylate [Norvasc] 10 mg PO DAILY #90 tab Physician Discharge Instructions: Follow-up with primary care provider in 1 to 2 weeks Follow-up with Neurology in 1 to 2-week Please call the inpatient unit for any questions or concerns regarding hospital stay Return to the ER for worsening symptoms Call Dr. Kumar at [phone] if any questions regarding hospital stay Please check BP daily or twice daily, and if systolic blood pressure(top number) greater than 180 or diastolic Blood pressure(bottom number) greater than 100 notify Continue: Propranolol 40mg po BID Levothyroxine as directed Add: Folic acid 1 mg daily Aspirin 81mg daily Norvasc 10mg daily Losartan 25mg twice daily Atorvastatin 20mg daily at bedtime Follow up with a Neurologist of your choice: MATT LEONE MD [address] [place] [address], [address] [place] [id number] Followup: ZAMZAM CHAVEZ [Primary Care Provider] - Matt Leone MD [ASSOCIATE-ACTIVE - CAN ADMIT] -
[2023-06-30 17:07] VITALS: BP 127/87
[2023-06-30] MEDS ORDERED: ATORVASTATIN 40 MG TAB PO SCH (21:00)
--- NOTE | 2023-07-01 06:57 | ECHO ---
HEIGHT: 5 ft 4 in WEIGHT: 226 lb 4.8 oz DATE OF STUDY: 06/30/[address]: Ana Rosa Kumar MD 2-DIMENSIONAL: YES M.MODE: YES DOPPLER: YES COLOR FLOW: YES TDS: PORTABLE: YES DEFINITY: BUBBLE STUDY: DIAGNOSIS: STROKE CARDIAC HISTORY: CATHERIZATION: NO SURGERY: NO PROSTHETIC VALVE: NO PACEMAKER: NO MEASUREMENTS (cm) DIASTOLIC (NORMALS) SYSTOLIC (NORMALS) IVSd 1.1 (0.6-1.2) LA Diam 2.7 (1.9-4.0) LVEF 48% LVIDd 4.4 (3.5-5.7) LVIDs 3.4 (2.0-3.5) %FS 24% LVPWd 1.2 (0.6-1.2) Ao Diam 2.8 (2.0-3.7) 2 DIMENSIONAL ASSESSMENT: RIGHT ATRIUM: NORMAL LEFT ATRIUM: NORMAL RIGHT VENTRICLE: NORMAL LEFT VENTRICLE: NORMAL TRICUSPID VALVE: NORMAL MITRAL VALVE: NORMAL PULMONIC VALVE: NORMAL AORTIC VALVE: NORMAL PERICARDIAL EFFUSION: NONE AORTIC ROOT: NORMAL LEFT VENTRICULAR WALL MOTION: NORMAL DOPPLER/COLOR FLOW: NORMAL COMMENTS: 1. NORMAL LEFT VENTRICULAR SYSTOLIC FUNCTION, EJECTION FRACTION 60-65%, NORMAL WALL MOTION 2. NORMAL DIASTOLIC FUNCTION TECHNOLOGIST: [place] [employer]
[2023-07-01] MEDS ORDERED: AMLODIPINE 10 MG TAB PO ONE (14:57)
--- NOTE | 2023-07-01 17:29 | EKG ---
Test Date: 2023-06-29 Test Time: 12:51:42 Sales Account Specialist: LML MEASUREMENT RESULTS: Intervals: Rate: 75 SD: 160 QRSD: 98 QT: 396 QTc: 442 Poth: P: 66 SD: 160 QRS: 42 T: 6 INTERPRETIVE STATEMENTS: Normal sinus rhythm Normal ECG Compared to ECG 02/11/2023 12:45:30 Sinus arrhythmia no longer present Electronically Signed On 07-01-23 17:23:25 CDT by Andrew Nettles
== END 2023-06-30 17:00 | disposition home or self-care (01) ==
LOC: ER 13:33 → ERHOLD 15:55 → 3RD-ICU 17:35
PROVIDERS: ADMIT Hospitalist; ATTEND Hospitalist
DX: G45.9 Transient cerebral ischemic attack, unspecified (principal); R20.0 Anesthesia of skin; R20.2 Paresthesia of skin; H54.7 Unspecified visual loss; R53.1 Weakness; R29.700 NIHSS score 0
CPT/HCPCS: 36415; 70450; 70496; 70498; 70551; 71045; 80048; 80053; 80061; 80076; 82565; 82947; 83735; 84100; 84484; 85025; 85610; 85730; 86140; 92523; 92610; 92977; 93005; 93306; 96365; 99291; J0360; J3101; J7030; Q9967

== ENCOUNTER 2024-05-16 10:37 | Emergency (ER) | payer OTHER ==
[2024-05-16 11:16] LABS: Absolute Basophils 0.1 K/uL (0-0.5); Absolute Eosinophils 0.1 K/uL (0-0.5); Absolute Monocytes 0.4 K/uL (0.1-1.3); Absolute Neutrophil 3.9 K/uL (1.8-8.0); Basophils % 1.3 % (0-1.3); Eosinophils % 2.1 % (0-4.4); Hematocrit 40.2 % (36.0-45.0); Hemoglobin 13.9 g/dL (12.0-15.0); Lymphocytes % 30.1 % (15.3-44.8); MCH 30.6 pg (27.0-35.0); MCHC 34.5 g/dL (32.0-36.0); MCV 88.9 fL (80-100); MPV 8.8 fL (7.6-11.3); Monocytes % 6.6 % (3.3-12.3); Neutrophils % 59.9 % (41.7-73.7); Nucleated Red Blood Cells % 0.1 % (0-0); Platelets 239 thou/uL (152-406); RBC Red Blood Cell Count 4.52 M/uL (3.86-4.86); Red Cell Distribution Width 13.2 % (12.1-15.2)
--- NOTE | 2024-05-16 11:19 | RAD REPORT ---
EXAMINATION: CT HEAD WITHOUT CONTRAST CLINICAL INDICATION: Female, 43 years old.headache, HTN TECHNIQUE: Axial CT images from the skull base to the vertex without intravenous contrast. Coronal an d sagittal reformatted images were created from the data set. One or more of the following dose reduction techniques were used: Automated exposure control, adjustment of the mA and/or kV according to patient size, and/or iterative reconstruction. Unless otherwise specified, incidental findings do not require dedicated imaging follow-up. [id number]. COMPARISON: 06/30/2023 FINDINGS: INTRACRANIAL: No acute intracranial hemorrhage. No hydrocephalus. No mass effect or midline shift. No significant white matter disease. VASCULATURE: No visualized abnormalities in the arteries or dural venous sinuses. SCALP/SKULL: No significant soft tissue or osseous abnormalities. SINUSES: The visualized paranasal sinuses and mastoid air cells are predominantly clear. IMPRESSION: No acute intracranial abnormality.
[2024-05-16 11:36] LABS: Anion Gap 7.8 mEq/L (5.0-15.0); Potassium 3.8 mEq/L (3.5-5.1); Troponin High Sensitivity 28.1 pg/mL (<58.9)
--- NOTE | 2024-05-16 11:49 | RAD REPORT ---
EXAM: Chest Single View HISTORY: HTN;Chest pain COMPARISON: 06/29/23 FINDINGS: LUNGS/PLEURA: The lungs are clear. No pleural effusions or pneumothorax. No pulmonary edema. MEDIASTINUM: The mediastinal silhouette is within normal limits. CARDIAC: The cardiac silhouette is within normal limits. UPPER ABDOMEN: No significant abnormality. BONES: No acute abnormality. LINES/TUBES/OTHER: N/A IMPRESSION: No evidence of acute cardiopulmonary disease.
--- NOTE | 2024-05-16 12:57 | EDPHYS ---
Physician Documentation [facility] Name: Valeria Bernal Age: 43 yrs Sex: Female : 1980 Arrival Date: 05/16/2024 Time: 10:37 Bed 26 Private MD: ED Physician Willy Morley HPI: 05/16 12:44 This 43 yrs old Female presents to ER via Ambulatory with complaints of High rn Blood Pressure, Chest Pressure, headache, Numbness Of Arm - left. 12:44 The patient has elevated blood pressure and discovered this at home. Onset: The rn symptoms/episode began/occurred last night. Modifying factors:. Associated signs and symptoms: Pertinent positives: headache, Pertinent negatives: dyspnea, nausea, visual changes, vomiting, weakness. Severity of symptoms: At its worst the blood pressure was moderate, in the emergency department the blood pressure is improved. The patient has experienced similar episodes in the past. Patient reports high blood pressure since last night, associated with "brain fog", headache, chest pressure, arm tingling, and generalized malaise. Took her blood pressure medicine prior to coming in today. Feels slightly better. No focal weakness. No vision changes. No slurred speech.. 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 - Infectious Disease History:: Denies. - Social history:: Smoking status: Patient reports the use of cigarette tobacco products, smokes one-half pack cigarettes per day. - Family history:: not pertinent. - Hospitalizations: : No recent hospitalization is reported. ROS: 12:44 Constitutional: Negative for fever, chills, and weight loss, Neck: Negative for injury, rn pain, and swelling, Cardiovascular: Negative for palpitations, and edema, Respiratory: Negative for shortness of breath, cough, wheezing, and pleuritic chest pain, Abdomen/GI: Negative for abdominal pain, nausea, vomiting, diarrhea, and constipation, MS/Extremity: Negative for injury and deformity, Skin: Negative for injury, rash, and discoloration, Neuro: Negative for weakness, and seizure, Exam: 10:58 ECG was reviewed by the Attending Physician. rn 12:44 Constitutional: This is a well developed, well nourished patient who is awake, alert, rn and in no acute distress. Ambulatory to chair without assistance or difficulty Head/Face: Normocephalic, atraumatic. Eyes: Pupils equal round and reactive to light, extra-ocular motions intact. Lids and lashes normal. Conjunctiva and sclera are non-icteric and not injected. Cornea within normal limits. Periorbital areas with no swelling, redness, or edema. Cardiovascular: Regular rate and rhythm. No pulse deficits. Respiratory: No increased work of breathing, no retractions or nasal flaring. Abdomen/GI: Soft, non-tender MS/ Extremity: Pulses equal, no cyanosis. Neuro: Awake and alert, GCS 15, oriented to person, place, time, and situation. Cranial nerves II-XII grossly intact. Motor strength 5/5 in all extremities. Sensory grossly intact. Cerebellar exam normal. Normal gait. Vital Signs: 11:04 BP 145 / 96; Pulse 68; Resp 18; Temp 97.3; Pulse Ox 99% ; Weight 104.33 kg; Height 5 jl7 ft. 4 in. ; Pain 3/10; 12:58 BP 154 / 96; Pulse 71; Resp 16; Pulse Ox 99% ; bp 11:04 Body Mass Index 39.48 (104.33 kg, 162.56 cm) jl7 11:04 Pain Scale: Adult jl7 MDM: 10:50 Medical Screening Exam initiated rn 12:56 Differential diagnosis: hypertensive crisis, Malignant HTN, CVA, intracerebral rn hemorrhage. Data reviewed: vital signs, nurses notes, lab test result(s), EKG, radiologic studies, CT scan, plain films. Care significantly affected by the following chronic conditions: Hypertension. Counseling: I had a detailed discussion with the patient and/or guardian regarding the historical points, exam findings, and any diagnostic results supporting the discharge/admit diagnosis, lab results, radiology results, the need for outpatient follow up, to return to the emergency department if symptoms worsen or persist or if there are any questions or concerns that arise at home. Counseling: I had a detailed discussion with the patient and/or guardian regarding the presence of at least one elevated blood pressure reading (>120/80) during this emergency department visit. Special discussion: I have referred the patient to see his PCP for further evaluation of high blood pressure. I discussed with the patient/guardian in detail that at this point there is no indication for admission to the hospital. It is understood, however, that if the symptoms persist or worsen the patient needs to return immediately for re-evaluation. ED course: No evidence of endorgan damage. CT head negative. Chest x-ray images negative for pneumonia or pneumothorax per my interpretation. Recommend blood pressure monitoring and internal and taking to PCP for blood pressure medication changes. I have personally reviewed all of the results, including but not limited to blood tests and imaging deemed necessary to safely discharge this patient at this time. All results given to and printed out for patient. I personally went over all the results with the patient and answered all questions. Patient will follow-up with PCP and or specialist as discussed. Return precautions given and understood.. 05/16 10:58 Order name: Basic Metabolic Panel; Complete Time: 12:05/16 10:58 Order name: CBC with Diff; Complete Time: 05/16 10:58 Order name: NT PRO-BNP; Complete Time: :05/16 10:58 Order name: Troponin HS; Complete Time: :05/16 10:58 Order name: XRAY Chest (1 view); Complete Time: 12:05/16 10:58 Order name: CT Head Brain wo Cont; Complete Time: 12:05/16 10:58 Order name: EKG; Complete Time: 05/16 10:58 Order name: Cardiac monitoring; Complete Time: 05/16 10:58 Order name: EKG - Nurse/Tech; Complete Time: 05/16 10:58 Order name: IV Saline Lock; Complete Time: 05/16 10:58 Order name: Labs collected and sent; Complete Time: 05/16 10:58 Order name: O2 Per Protocol; Complete Time: 05/16 10:58 Order name: O2 Sat Monitoring; Complete Time: : rn EC:58 Rate is 67 beats/min. Rhythm is regular. QRS [place] is Normal. NE interval is normal. QRS rn interval is normal. QT interval is normal. No Q waves. T waves are Normal. No ST changes noted. Clinical impression: Normal ECG. Interpreted by me. Reviewed by me. 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
--- NOTE | 2024-05-16 12:57 | ER ---
Nurse's Notes [facility] Name: Valeria Bernal Age: 43 yrs Sex: Female : 1980 Arrival Date: 05/16/2024 Time: 10:37 Bed 26 Private MD: Diagnosis: Essential (primary) hypertension Presentation: 05/16 11:04 Chief complaint: Patient states: [place], BP 150/115, chest pressure/heaviness, left arm jl7 soreness, brain fog. Coronavirus screen: At this time, the client does not indicate any symptoms associated with coronavirus-19. Ebola Screen: No symptoms or risks identified at this time. Initial Sepsis Screen: Does the patient meet any 2 criteria? No. Patient's initial sepsis screen is negative. Does the patient have a suspected source of infection? No. Patient's initial sepsis screen is negative. Risk Assessment: Do you want to hurt yourself or someone else? Patient reports no desire to harm self or others. Onset of symptoms was May 16, 2024 at 09:15. 11:04 Method Of Arrival: Ambulatory [facility] 11:04 Acuity: [place] 2 jl7 Triage Assessment: 11:05 General: Appears in no apparent distress. uncomfortable, Behavior is calm, cooperative, jl7 appropriate for age. Pain: Complains of pain in headache, chest pressure. Cardiovascular: Patient's skin is warm and dry. Rhythm is regular. 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 - Infectious Disease History:: Denies. - Social history:: Smoking status: Patient reports the use of cigarette tobacco products, smokes one-half pack cigarettes per day. - Family history:: not pertinent. - Hospitalizations: : No recent hospitalization is reported. Screenin:10 [facility] ED Fall Risk Assessment (Adult) History of falling in the last 3 months, bp including since admission No falls in past 3 months (0 pts) Confusion or Disorientation No (0 pts) Intoxicated or Sedated No (0 pts) Impaired Gait No (0 pts) Mobility Assist Device Used No (0 pt) Altered Elimination No (0 pt) Score/Fall Risk Level 0 - 2 = Low Risk Oriented to surroundings. Abuse screen: Denies threats or abuse. Denies injuries from another. Nutritional screening: No deficits noted. Tuberculosis screening: No symptoms or risk factors identified. Assessment: 11:05 General: Appears in no apparent distress. Behavior is calm, cooperative, appropriate bp for age. Pain: Pain does not radiate. Pain began suddenly. Neuro: No deficits noted. Cardiovascular: No deficits noted. Respiratory: No deficits noted. GI: No signs and/or symptoms were reported involving the gastrointestinal system. : No signs and/or symptoms were reported regarding the genitourinary system. EENT: No deficits noted. Derm: No deficits noted. Musculoskeletal: No deficits noted. Vital Signs: 11:04 BP 145 / 96; Pulse 68; Resp 18; Temp 97.3; Pulse Ox 99% ; Weight 104.33 kg; Height 5 jl7 ft. 4 in. ; Pain 3/10; 12:58 BP 154 / 96; Pulse 71; Resp 16; Pulse Ox 99% ; bp 11:04 Body Mass Index 39.48 (104.33 kg, 162.56 cm) jl7 11:04 Pain Scale: Adult jl7 ED Course: 10:40 Patient arrived in ED. im 10:50 Willy Morley MD is Attending Physician. rn 11:05 Triage completed. jl7 11:05 Arm band placed on right wrist. jl7 11:09 CT Head Brain wo Cont In Process Unspecified. EDMS 11:10 Patient has correct armband on for positive identification. Provided Education on: na. bp Client placed on continuous cardiac and pulse oximetry monitoring. NIBP monitoring applied. hall monitor on. Pulse ox on. NIBP on. 11:10 Patient maintains SpO2 saturation greater than 95% on room air. bp 11:12 Jamel Campbell, STARLA is Primary Nurse. bp 11:27 XRAY Chest (1 view) Sent. bp 11:46 XRAY Chest (1 view) In Process Unspecified. EDMS 12:58 No provider procedures requiring assistance completed. IV discontinued, intact, bp bleeding controlled, No redness/swelling at site. Pressure dressing applied. Administered Medications: No medications were administered Medication: 12:59 VIS not applicable for this client. bp Outcome: 12:57 Discharge ordered by . rn 12:58 Discharged to home ambulatory, with family, bp 12:58 Condition: stable 12:58 Discharge instructions given to patient, Instructed on discharge instructions, follow up and referral plans. Demonstrated understanding of instructions, follow-up care, 13:14 Patient left the ED. bp Signatures: Dispatcher [employer] EDMS Wilyl Morley MD MD rn Leal, Jahala, RN RN jl Jamel Campbell RN RN bp Meredith Florentino
[2024-05-16 18:36] VITALS: TEMP 97.3; O2SAT 99
[2024-05-16 18:48] VITALS: BP 154/96
== END 2024-05-16 13:14 | disposition home or self-care (01) ==
LOC: ER 10:37
DX: I10 Essential (primary) hypertension (principal); R51.9 Headache, unspecified; R07.89 Other chest pain; F17.210 Nicotine dependence, cigarettes, uncomplicated
CPT/HCPCS: 36415; 70450; 71045; 80048; 83880; 84484; 85025